=== PATIENT | female | born 2005 | race Caucasian/White ===

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

== ENCOUNTER 2024-04-05 15:09 | Emergency (ER) | payer OTHER, SELFPAY ==
--- NOTE | 2024-04-05 15:28 | ED.FEMALEGU ---
HPI - Female Genitourinary General Chief complaint: Urogenital-Female Stated complaint: sharp shooting pain from pelvis Time Seen by Provider: 04/05/24 15:58 Source: patient and RN notes reviewed Mode of arrival: ambulatory Limitations: no limitations History of Present Illness HPI Narrative: 18-year-old female presents with concern of for left lower quadrant pain that started yesterday. She reports pain worsens with activity. She reports she is having some low back pain as well. She reports history of UTIs but typically has dysuria and strong smelling urine with her UTI symptoms. She reports she has an IUD so she does not get menstrual periods, she denies concern for STDs. She denies abnormal vaginal discharge. She denies fever, chills, sweats, nausea, vomiting. She denies bowel problems MD elicited complaint: other (LLQ pain) Related Data Home Medications Medication Instructions Recorded Confirmed levonorgestrel 17.5 mcg/24 hr (up 1 device intrauterine ONCE 04/05/24 04/05/24 to 5 yrs) 19.5mg intrauterine device (Kyleena) Allergies Allergy/AdvReac Type Severity Reaction Status Date / Time No Known Allergies Allergy Verified 04/05/24 15:47 Review of Systems Review of Systems: CONSTITUTIONAL: Denies malaise, chills, sweats, or fever. CARDIOVASCULAR: Denies chest pain, palpitations, or edema. RESPIRATORY: Denies cough or dyspnea. GASTROINTESTINAL: Reports left lower quadrant abdominal pain. Denies nausea, vomiting, diarrhea GENITOURINARY: Denies dysuria, frequency, urgency, suprapubic pressure. Denies flank pain or hematuria. SKIN: Denies rash or itching. MUSCULOSKELETAL: Reports left back pain. Denies myalgia. All systems reviewed & are unremarkable except as noted in HPI and below PMFSH Past Medical History Medical History (Updated 04/05/24 @ 16:05 by Chrissy Pruett NP) Patient denies medical problems Surgical History Surgical History (Updated 08/17/22 @ 00:07 by Karen Florian MD) No pertinent past surgical history Social History Social History (Updated 08/17/22 @ 00:07 by Karen Florian MD) Smoking status: Never smoker Comments At time of signature, agree with nursing past medical, surgical, social and family history. There is no relevant family history pertinent to the presenting complaint Exam Narrative: GENERAL: Well-appearing, well-nourished, and in no acute distress. HEAD: Normocephalic. EYES: PERRLA, conjunctivae clear. NECK: Supple. No lymphadenopathy CHEST: Clear to auscultation. No respiratory distress. HEART: Regular rate and rhythm. ABDOMEN: Soft, nontender upon palpation, nondistended, normal active bowel sounds, no palpable or pulsatile masses, no guarding. Left CVA tenderness SKIN: Warm, dry, no rash. NEURO: Alert and oriented x3. PSYCH: Normal mood and affect Course Course Emergency Course: I discussed UA findings with patient, exam findings. However I did discuss with her that given her symptoms I cannot rule out any other pathology of her pain and that she could be transferred to the emergency room for further evaluation. Patient would not like to go to the emergency room at this time. She understands symptoms to look for for when to seek care in the emergency room. Anticipatory guidance given. Patient agrees to follow-up as directed and is aware of reasons to seek care at the emergency department. Portions of this record may have been created with voice recognition software Level of Care: Express Care Visit Vital Signs Vital signs: Reviewed. MDM - Female Genitourinary MDM Narrative Medical decision making narrative: Exam findings and UA show no acute concerns or changes; patient is non-toxic appearing and is in no distress. Patient is appropriate for outpatient treatment and follow-up. Differential Diagnosis Differential diagnosis: Likely urinary tract infection and cystitis Critical Care Time Critical Care Time Critical C
[2024-04-05 15:34] VITALS: BP 109/64; PULSE 84; RESP 18; TEMP 36.6; O2SAT 100
[2024-04-05 15:48] LABS: EDUAAPPEAR Cloudy; EDUABILI Negative; EDUABLOOD 2+; EDUACOLOR1 Yellow; EDUAGLUCOSE Negative; EDUAKETONE Negative; EDUALEUKO 1+; EDUANITRATE Negative; EDUAPH 5.5; EDUAPROTEIN Negative; EDUAUROBILI 0.2
== END 2024-04-05 16:13 | disposition home or self-care (01) ==
PROVIDERS: Emergency Provider Nurse Practitioner; PCP Family Medicine
DX: N39.0 Urinary tract infection, site not specified (principal)
CPT/HCPCS: 81003; 87086; 99213; G0463

== ENCOUNTER 2024-04-06 16:02 | Outpatient (CLI) | payer OTHER, SELFPAY ==
--- NOTE | ~2024-04-06 | XR_ITS ---
XR lumbar spine 2-3V 04/06/2024 16:23 Indication: Low back pain for 3 days Procedure: 4 views lumbar spine Comparison: No prior studies for comparison. Findings: Vertebral body heights are maintained. No significant disc narrowing. No fracture, subluxat ion or dislocation. Pedicles intact. No evidence for spondylolisthesis. Sacral foramen are symmetric. Impression: 1: No significant abnormality of the lumbar spine. Reviewed, dictated and finalized at location B. Impression: 1: No significant abnormality of the lumbar spine.
== END 2024-04-06 16:03 | disposition home or self-care (01) ==
LOC: CHSIMG 16:03
PROVIDERS: PCP Family Medicine; Visit Provider Family Medicine
DX: R10.9 Unspecified abdominal pain (principal); M54.50 Low back pain, unspecified
CPT/HCPCS: 72100

== ENCOUNTER 2024-04-22 13:55 | Emergency (ER) | payer OTHER, SELFPAY ==
[2024-04-22 14:07] VITALS: BP 110/69; PULSE 91; RESP 18; TEMP 36.4; O2SAT 100
[2024-04-22 14:09] VITALS: BP 110/69; PULSE 91; RESP 18; TEMP 36.4; O2SAT 100
--- NOTE | 2024-04-22 14:27 | ED.URI ---
HPI - URI/Sore Throat General Chief Complaint: Upper Respiratory Infection Stated Complaint: strep test Time Seen by Provider: 04/22/24 14:27 Source: patient Mode of arrival: ambulatory Limitations: no limitations History of Present Illness HPI Narrative: 18-year-old female presents with complaint of sore throat, fatigue, nausea and vomiting, headache for 2 days. Afebrile. Reports COVID and strep exposure. All systems reviewed and negative except as noted above. Related Data Home Medications Medication Instructions Recorded Confirmed levonorgestrel 17.5 mcg/24 hr (up 1 device intrauterine ONCE 04/05/24 04/05/24 to 5 yrs) 19.5mg intrauterine device (Kyleena) Allergies Allergy/AdvReac Type Severity Reaction Status Date / Time No Known Allergies Allergy Verified 04/22/24 14:09 Review of Systems Review of Systems: CONSTITUTIONAL: Denies fever, chills, or sweats. Reports fatigue. EYES: Denies visual changes, redness, or discharge. ENT: Denies rhinorrhea, congestion . Reports sore throat. Denies otalgia. CARDIOVASCULAR: Denies chest pain, palpitations, or edema. RESPIRATORY: Denies cough or dyspnea. GASTROINTESTINAL: Denies abdominal pain. Reports nausea, vomiting. Denies diarrhea. GENITOURINARY: Denies dysuria or hematuria. SKIN: Denies rash or itching. MUSCULOSKELETAL: Denies back pain, joint pain, or myalgia. NEUROLOGIC: Denies headache, numbness, or weakness. PSYCHIATRIC: Denies anxiety or depression. All other systems reviewed are negative, except as documented in HPI. [facility] Past Medical History Medical History (Updated 04/22/24 @ 14:38 by Bernarda Short NP) Patient denies medical problems Surgical History Surgical History (Updated 08/17/22 @ 00:07 by Karen Florian MD) No pertinent past surgical history Social History Social History (Updated 08/17/22 @ 00:07 by Karen Florian MD) Smoking status: Never smoker Comments At time of signature, agree with nursing past medical, surgical, social and family history. There is no relevant family history pertinent to the presenting complaint. Exam Narrative: GENERAL: This is a well-nourished, well-developed patient, in no apparent distress. HEAD: normocephalic, atraumatic. EYES: PERRL. Sclera clear/white. Vision is grossly intact. EARS: External ears normal, auditory canals clear and without drainage, TMs normal without perforation. Hearing grossly intact. NOSE: External nose normal with no obvious nasal discharge, nares without redness, no rhinorrhea. THROAT: Mucous membranes moist, mild erythema with clear postnasal drainage NECK: Neck supple, non-tender without lymphadenopathy, masses or thyromegaly. CARDIOVASCULAR: Regular rate and rhythm without murmurs, gallops, or rubs. RESPIRATORY: Clear to auscultation. Breath sounds equal bilaterally. No wheezes, rales, or rhonchi. SKIN: warm, Dry, intact with no suspicious lesions or rash, good texture and turgor. NEURO: awake, alert, and oriented to person, place and time. There were no obvious focal neurologic abnormalities. EXTREMITIES: No joint tenderness, effusion, or edema noted. Course Course Level of Care: Express Care Visit Vital Signs Vital signs: Vital Signs Temperature 36.4 C 04/22/24 14:07 Pulse Rate 91 04/22/24 14:07 Respiratory Rate 18 04/22/24 14:07 Blood Pressure 110/69 04/22/24 14:07 Pulse Oximetry 100 04/22/24 14:07 Oxygen Delivery Room Air 04/22/24 14:07 Temperature 36.4 C 04/22/24 14:09 Pulse Rate 91 04/22/24 14:09 Respiratory Rate 18 04/22/24 14:09 Blood Pressure 110/69 04/22/24 14:09 Pulse Oximetry 100 04/22/24 14:09 Oxygen Delivery Room Air 04/22/24 14:09 reviewed MDM - URI/Sore Throat MDM Narrative Medical decision making narrative: negative COVID, influenza and strep test. Strep culture ordered. Will wait for strep culture results prior to treating with antibiotics. Patient ag
[2024-04-22 14:29] LABS: EDSTREPNEGPOS1 Negative
[2024-04-22 14:35] LABS: EDINFLUASCREEN Negative; EDINFLUBSCREEN Negative
== END 2024-04-22 14:42 | disposition home or self-care (01) ==
PROVIDERS: Emergency Provider Nurse Practitioner Family; PCP Family Medicine
DX: J06.9 Acute upper respiratory infection, unspecified (principal); Z20.822 Contact with and (suspected) exposure to COVID-19
CPT/HCPCS: 87081; 87426; 87804; 87880; 99213; G0463

== ENCOUNTER 2024-05-04 20:46 | Emergency (ER) | payer OTHER, SELFPAY ==
[2024-05-04 20:50] VITALS: BP 125/85; PULSE 89; RESP 18; TEMP 36.6; O2SAT 99
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
== END 2024-05-04 21:10 | disposition home or self-care (01) ==
LOC: CHSED 21:07
PROVIDERS: Emergency Provider Emergency Medicine; PCP Family Medicine
DX: S80.12XA Contusion of left lower leg, initial encounter (principal); Z79.899 Other long term (current) drug therapy; V09.9XXA Pedestrian injured in unspecified transport accident, initial encounter
CPT/HCPCS: 99282

== ENCOUNTER 2024-08-21 09:49 | Emergency (ER) | payer OTHER, SELFPAY ==
[2024-08-21 09:58] VITALS: BP 107/71; PULSE 61; RESP 16; TEMP 36.4; O2SAT 100
--- NOTE | 2024-08-21 10:13 | ED.EYEPROB ---
HPI - Eye Problem General Chief complaint: Eye Problems Stated complaint: seeing blurry and spots Time Seen by Provider: 08/21/24 10:04 Source: patient Mode of arrival: ambulatory Limitations: no limitations History of Present Illness HPI Narrative: Chalino is a 19-year-old female patient presenting to the clinic today with complaints of headache with visual changes. She reports symptoms started when she woke up at 2:00 a.m. this morning. States she got up to go the bathroom and had a headache with blurry vision. She thought that she may pass out due to the blurry vision. Went and woke her mom up and took some Tylenol. Rates her headache at 6/10 currently. States that this was the worst headache she has ever had as she does not normally get headaches. Last visual exam was approximately 6 years ago. Was told that she needed glasses but she does not wear glasses. No history of migraine headaches. States during the time that the headache was severe she did feel nauseous. Still reports blurry vision with seeing spots. Denies any dizziness or URI symptoms. Visual acuity 20/30 OU Related Data Home Medications ?Medication ?Instructions ?Recorded ?Confirmed ?Last Taken ?Type levonorgestrel 17.5 mcg/24 hr (up 1 device intrauterine ONCE 04/05/24 05/04/24 Unknown History to 5 yrs) 19.5mg intrauterine device (Kyleena) valacyclovir 1 gram tablet 1,000 mg PO BID 05/04/24 05/04/24 Unknown History Allergies Allergy/AdvReac Type Severity Reaction Status Date / Time No Known Allergies Allergy Verified 08/21/24 10:02 Review of Systems Review of Systems: Pertinent positives per HPI. Patient denies any fever, chills, rash, dizziness, cough, runny nose, sore throat, shortness of breath, chest pain, palpitations, vomiting, diarrhea, constipation, abdominal pain, or any urinary issues. [facility] Past Medical History Medical History (Updated 08/21/24 @ 10:12 by Khari Malone APRN) Patient denies medical problems Surgical History Surgical History (Updated 08/17/22 @ 00:07 by Karen Florian MD) No pertinent past surgical history Social History Social History (Updated 08/17/22 @ 00:07 by Karen Florian MD) Smoking status: Never smoker Comments At the time of my signature, I reviewed and agree with the nursing past medical, surgical, social, and family history. There is no relevant family history pertinent to the patient complaint. Exam Narrative: General: Well-developed, well nourished, in no apparent distress Head: Normocephalic, atraumatic Eyes: Pupils equally round and reactive to light bilaterally, EOM intact, sclera and conjunctive clear, no discharge, lids normal Ears: TMs intact and clear, ear canals clear, no drainage, grossly hearing normal. Nose: Nares patent, no discharge, no inflammation, no sinus tenderness. Mouth: Oropharynx without lesions or masses, good dentition, MMM. Tongue midline, even rise and fall of uvula Neck: Supple, trachea midline, no enlargement of anterior or posterior cervical nodes, no thyroid masses or goiter palpable. Cardio: Regular rate and rhythm, s1 and s2 normal, no murmur appreciated. Resp: Clear to auscultation bilaterally anteriorly and posteriorly, no rhonchi, rales, wheezing or rubs Musculoskeletal: No deformity, non-tender to palpation, grossly normal range of motion, muscle strength strong and equal, peripheral pulse strong, no edema, no cyanosis, normal gait and station Neuro: Alert and oriented x4 with normal speech, no focal deficits, cranial nerves I through XII intact, muscle strength 5 out of 5, sensation intact bilaterally. Course Course Emergency Course: Portions of this record may have been created with voice recognition software. Level of Care: Express Care Visit Vital Signs Vital signs: Vital Signs Temperature 36.4 C L 08/21/24 09:58 Pulse Rate 61 08/21/24 09:58 Respiratory Rate 16 08/21/24 09:58 Blood Pressure 107/71 08/21/24 09:58 Pulse Oximetry 100 08/21/24 09:58 Oxygen Delivery Room Air 08/21/24 09:58 Temperature 36.4 C L 08/21/24 09:58 Pulse Rate 61 08/21/24 09:58 Respiratory Rate 16 08/21/24 09:58 Blood Pressure 107/71 08/21/24 09:58 Pulse Oximetry 100 08/21/24 09:58 Oxygen Delivery Room Air 08/21/24 09:58 Vital signs reviewed MDM - Eye Problem MDM Narrative Medical decision making narrative: At the time of visit patient is resting comfortably on the exam table. Patient appears to be nontoxic. Plan: Patient reports headache with visual changes. No history of migraine headache. States that it was the worst headache that she has ever had as she does not normally get headaches. Did have some associated nausea. Took Tylenol and this improved the headache however she is still having visual changes. Recommend transfer to the ER for further evaluation-head CT. Discussed case with Serena at [facility] and she accepts patient for transfer. Differential Diagnosis Differential diagnosis: Likely glaucoma and other (Migraine headache, ocular migraine, headache, retinal detachment) Discharge Plan Discharge Clinical Impression: Change in vision Headache Qualifiers: Headache type: unspecified Headache chronicity pattern: acute headache Intractability: not intractable Qualified Code(s): R51.9 - Headache, unspecified Patient Disposition: Acute Care Hospital Condition: Stable Patient Language: Mohawk Prescriptions: No Action valacyclovir 1 gram tablet 1,000 mg PO BID Kyleena 17.5 mcg/24 hr (5 yrs) 19.5 mg Intrauterine Device 1 device INTRAUTERINE ONCE Rx Instructions: as a single dose Follow-up/Referrals: UNKNOWN,DOCTOR [Primary Care Provider] - Time of Disposition: 10:12 Quality NIHSS Nursing Documentation ED NIHSS nursing documentation: reviewed/agree
== END 2024-08-21 10:15 | disposition short-term general hospital (02) ==
PROVIDERS: Emergency Provider Nurse Practitioner Family
DX: R51.9 Headache, unspecified (principal); H53.8 Other visual disturbances
CPT/HCPCS: 99212; G0463

== ENCOUNTER 2024-08-21 10:26 | Emergency (ER) | payer OTHER, SELFPAY ==
--- NOTE | ~2024-08-21 | CT_ITS ---
Non-contrast Head CT History: Headache Technique: Axial non-contrast imaging of the brain was performed. Dose reduction technique was used on this scan by utilizing automated exposure control and iterative reconstruction technique. The dose -length product (DLP) was 605.33 mGy-cm. Findings: There is no evidence of intracranial hemorrhage, mass lesion, or acute infarct. Brain par enchyma appears normal. The ventricles and subarachnoid spaces are normal in size. The calvarium ap pears normal. The visualized paranasal sinuses and mastoid air cells are clear. Impression: No significant abnormality seen. Reviewed, dictated and finalized at location . OYEE COMMUNICATIONS COORDINATOR Impression: No significant abnormality seen.
[2024-08-21 10:30] VITALS: BP 117/65; PULSE 75; RESP 16; TEMP 36.4; O2SAT 100
--- NOTE | 2024-08-21 10:35 | ED.HA ---
HPI - Headache General Chief Complaint: Headache <Liz Newell PA-C - Last Filed: 08/21/24 10:36> Stated Complaint: blurry vision, MCNULTY <Liz Newell PA-C - Last Filed: 08/21/24 10:36> Time Seen by Provider: 08/21/24 12:01 <Liz Newell PA-C - Last Filed: 08/21/24 10:36> Focused HPI: 19-year-old female with no past medical history presents to the emergency department for a headache that started at 2:00 a.m.. Patient states she her headache started with black spots in her vision in bilateral eyes and 30 minutes later began having headache on her nasal bridge in surrounding her eyes. States the headache and black spots in her vision has been persistent since. She has no history of headaches, no head injury trauma, no fever, no nuchal rigidity. She denies focal numbness or weakness. She has an IUD in place and denies possibility of . GENERAL: Well-appearing, well-nourished, and in no acute distress. HEAD: Normocephalic, atraumatic. CHEST: Clear to auscultation. ?No respiratory distress. HEART: Regular rate and rhythm.? NEURO: ?Alert and oriented x3. Cranial nerves 2-12 intact. Strength 5/5 in BUE and BLE. Sensation intact throughout. Normal [id number]. No pronator drift. Patient screened in triage and initial orders placed.? ?Additional care and disposition to be based upon?diagnostic testing and treatment. <Liz Newell PA-C - Last Filed: 08/21/24 10:36> History of Present Illness HPI Narrative: Agree with HPI as described above <Nguyễn Gregorio MD - Last Filed: 08/21/24 13:20> Related Data Home Medications: Home Medications ?Medication ?Instructions ?Recorded ?Confirmed ?Last Taken ?Type levonorgestrel 17.5 mcg/24 hr (up 1 device intrauterine ONCE 04/05/24 05/04/24 Unknown History to 5 yrs) 19.5mg intrauterine device (Kyleena) valacyclovir 1 gram tablet 1,000 mg PO BID 05/04/24 05/04/24 Unknown History <Liz Newell PA-C - Last Filed: 08/21/24 10:36> Allergies/Adverse Reactions: Allergies Allergy/AdvReac Type Severity Reaction Status Date / Time No Known Allergies Allergy Verified 08/21/24 11:28 <Liz Newell PA-C - Last Filed: 08/21/24 10:36> Review of Systems Review of Systems: as reviewed above in HPI <Nguyễn Gregorio MD - Last Filed: 08/21/24 13:20> PMFSH Past Medical History Medical History: Medical History Patient denies medical problems <Liz Newell PA-C - Last Filed: 08/21/24 10:36> Surgical History Surgical History: Surgical History No pertinent past surgical history <Liz Newell PA-C - Last Filed: 08/21/24 10:36> Social History Social History: Social History Smoking status: Never smoker <Liz Newell PA-C - Last Filed: 08/21/24 10:36> Exam Narrative: GENERAL: [Well-appearing, well-nourished, and in no acute distress.] HEAD: [Normocephalic, atraumatic.] EYES: [PERRLA and EOMI.] ENT: Nares clear, no rhinorrhea or epistaxis. Mucous membranes moist. NECK: Supple. CHEST: [Clear to auscultation. No respiratory distress.] HEART: [Regular rate and rhythm]. No murmur heard. [Normal peripheral pulses.] ABDOMEN: [Soft, nondistended], [nontender], [No rigidity or guarding] EXTREMITIES: Normal range of motion. [No edema.] SKIN: Warm, dry, no rash. NEURO: [No focal deficits]. Alert and oriented [x3.] PSYCH: [Normal mood and affect.] <Nguyễn Gregorio MD - Last Filed: 08/21/24 13:20> Course Vital Signs Vital signs: Vital Signs Temperature 36.4 C 08/21/24 10:30 Pulse Rate 75 08/21/24 10:30 Respiratory Rate 16 08/21/24 10:30 Blood Pressure 117/65 08/21/24 10:30 Pulse Oximetry 100 08/21/24 10:30 Temperature 36.4 C 08/21/24 10:30 Pulse Rate 75 08/21/24 10:30 Respiratory Rate 16 08/21/24 10:30 Blood Pressure 117/65 08/21/24 10:30 Pulse Oximetry 100 08/21/24 10:30 <Liz Newell PA-C - Last Filed: 08/21/24 10:36> Vital Signs Temperature 36.4 C 08/21/24 10:30 Pulse Rate 75 08/21/24 10:30 Respiratory Rate 16 08/21/24 10:30 Blood Pressure 117/65 08/21/24 10:30 Pulse Oximetry 100 08/21/24 10:30 Temperature 36.4 C 08/21/24 10:30 Pulse Rate 75 08/21/24 10:30 Respiratory Rate 16 08/21/24 10:30 Blood Pressure 117/65 08/21/24 10:30 Pulse Oximetry 100 08/21/24 10:30 <Nguyễn Gregorio MD - Last Filed: 08/21/24 13:20> MDM - Headache MDM Narrative Medical decision making narrative: 19-year-old female with no significant past medical history presenting from urgent care for evaluation of a headache that began at 2:30 a.m. this morning. Patient states that she got up this morning went to the bathroom and get a glass of water and then suddenly felt dizzy and felt like her vision was blurry. She later described developing a slow onset headache that was behind both of her eyes, radiating towards bilateral frontal lobes. she states she has never had a history of migraine headaches her ocular migraines. This is the worst headache she has ever had although with very gradual and slow in onset. She otherwise appears comfortable presently, was referred from urgent care after they evaluated her and felt she needed additional workup. she did receive migraine cocktail out front including Reglan, diphenhydramine, ibuprofen all p.o. patient was evaluated and had symptomatic resolution. patient states that she is supposed to be wearing glasses but does not choose to. She states that her blurry vision and headache have both significantly improved. She otherwise appears well has no focal neurological deficits. No jaw claudication, no unilateral symptoms, no red flag symptoms of her headache aside from her on having a history of migraine. We did discuss options going forward including risks and benefits of CT scan imaging with her symptomatic resolution. Ultimately other sure decision making we will obtain a CT head without contrast to assess for any kind of intracranial pathology although very unlikely at this time and she symptomatically and clinically is being treated as a migraine headache at this time. vital signs reassuring. She denies any chance of , has an IUD. no indications for blood work at this time given otherwise well appearance and symptom resolution. Will be able to be safely discharged after CT scan results. CT head shows no acute intracranial process. urine test negative. Patient was re-evaluated still had symptomatic resolution. At this time she is stable for discharge home and patient and family felt comfortable with this plan of care with outpatient follow-up. There were given return precautions including recurrence of severe headache, new or worsening vision changes, any other concerns and they should seek re-evaluation at that time. <Nguyễn Gregorio MD - Last Filed: 08/21/24 13:20> Differential Diagnosis Differential diagnosis: Likely migraine, tension headache, subarachnoid hemorrhage, headache and other <Nugyễn Gregorio MD - Last Filed: 08/21/24 13:20> Medical Records Attestation: I reviewed the patient's medical records. <Nguyễn Gregorio MD - Last Filed: 08/21/24 13:20> Lab Data Attestation: I reviewed the patient's lab results. <Nguyễn Gregorio MD - Last Filed: 08/21/24 13:20> Labs: Lab Results 08/21/24 Range/Units 12:25 POC Urine HCG, Qual Negative (Negative) <Liz Newell PA-C - Last Filed: 08/21/24 10:36> Lab Results 08/21/24 Range/Units 12:25 POC Urine HCG, Qual Negative (Negative) <Nguyễn Gregorio MD - Last Filed: 08/21/24 13:20> Imaging Data Attestation: I personally reviewed and interpreted this imaging study as follows: <Nguyễn Gregorio MD - Last Filed: 08/21/24 13:20> My impression: Impressions Head CT 08/21/24 12:59 Impression: No significant abnormality seen. <Nguyễn Gregorio MD - Last Filed: 08/21/24 13:20> Discharge Plan Discharge Clinical Impression: Migraine <Liz Newell PA-C - Last Filed: 08/21/24 10:36> Patient Disposition: Home, Self-Care <Liz Newell PA-C - Last Filed: 08/21/24 10:36> Condition: Stable <Liz Newell PA-C - Last Filed: 08/21/24 10:36> Instructions: Antibiotic Form, Migraine Headache (ED) <Liz Newell PA-C - Last Filed: 08/21/24 10:36> Additional Instructions: You can take ibuprofen and Tylenol for any continued or residual headache. Follow-up with your primary care provider regarding your migraines. Return with any new or worsening symptoms at any time. <Liz Newell PA-C - Last Filed: 08/21/24 10:36> Patient Language: Estonian <Liz Newell PA-C - Last Filed: 08/21/24 10:36> Prescriptions: No Action valacyclovir 1 gram tablet 1,000 mg PO BID Kyleena 17.5 mcg/24 hr (5 yrs) 19.5 mg Intrauterine Device 1 device INTRAUTERINE ONCE Rx Instructions: as a single dose <Liz Newell PA-C - Last Filed: 08/21/24 10:36> Follow-up/Referrals: UNKNOWN,DOCTOR [Primary Care Provider] - <Liz Newell PA-C - Last Filed: 08/21/24 10:36> Time of Disposition: 13:19 <Liz Newell PA-C - Last Filed: 08/21/24 10:36> 13:19 <Nguyễn Gregorio MD - Last Filed: 08/21/24 13:20>
[2024-08-21] MEDS: IBUPROFEN 400 MG TABLET 800 MG PO (11:31)
[2024-08-21] MEDS: diphenhydrAMINE HCl CAP 25 MG CAPSULE PO (11:32)
[2024-08-21] MEDS: METOCLOPRAMIDE HCL 10 MG TABLET PO (11:32)
[2024-08-21 12:27] LABS: BEDSIDEPREGUCG Negative (Negative)
== END 2024-08-21 13:55 | disposition home or self-care (01) ==
PROVIDERS: Emergency Provider Student in an Organized Health Care Education/Training Program
DX: G43.909 Migraine, unspecified, not intractable, without status migrainosus (principal)
CPT/HCPCS: 70450; 81025; 99284; A9270

== ENCOUNTER 2024-10-03 15:27 | Emergency (ER) | payer OTHER, SELFPAY ==
--- NOTE | 2024-10-03 15:29 | ED_ITS ---
HPI - URI/Sore Throat General Chief Complaint: Upper Respiratory Infection Stated Complaint: flu symptoms Time Seen by Provider: 10/03/24 15:29 Source: patient Mode of arrival: ambulatory Limitations: no limitations History of Present Illness HPI Narrative: Patient is a 19-year-old female who presents with 3 days of sore throat and feeling and fatigue. Patient also vomited on Saturday 4-5 times. Has been exposed to influenza. Denies any fever, chills, congestion, cough, diarrhea. Related Data Home Medications ?Medication ?Instructions ?Recorded ?Confirmed ?Last Taken ?Type levonorgestrel 17.5 mcg/24 hr (up 1 device intrauterine ONCE 04/05/24 05/04/24 Unknown History to 5 yrs) 19.5mg intrauterine device (Kyleena) Allergies Allergy/AdvReac Type Severity Reaction Status Date / Time No Known Allergies Allergy Verified 10/03/24 15:35 Review of Systems Review of Systems: All systems reviewed & are unremarkable except as noted in HPI and below Constitutional: Constitutional: Denies chills, Reports fatigue, Denies fever(s), Denies headache(s), Denies malaise and Denies weakness Eyes: Eyes: Denies blurry vision, Denies itchy eyes and Denies loss of vision ENT: Denies otalgia, Denies headache(s), Denies nasal congestion, Denies sinus pain and Reports sore throat Cardiovascular: Cardiovascular: Denies chest pain, Denies irregular heart rhythm and Denies dyspnea Respiratory: Respiratory: Denies cough and Denies dyspnea Gastrointestinal: Gastrointestinal: Denies abdominal pain, Denies diarrhea, Denies nausea and Reports vomiting Musculoskeletal: Musculoskeletal: Denies back pain, Denies myalgias and Denies arthralgias Integumentary/Breasts: Skin/Breast: Denies pruritus and Denies rash Neurologic: Denies headache(s), Denies loss of vision and Denies weakness Psychiatric: Psychiatric: Reports no additional psychiatric complaints Endocrine: Endocrine: Denies fatigue Allergic/Immunologic: Allergic/Immunologic: Denies itchy eyes PMFSH Past Medical History Medical History Patient denies medical problems Surgical History Surgical History No pertinent past surgical history Social History Social History Smoking status: Never smoker Comments At time of signature, agree with nursing past medical, surgical, social and family history. There is no relevant family history pertinent to the presenting complaint. Exam Const: General: cooperative, healthy appearing, comfortable, no acute distress and well nourished Nutritional Appearance: well nourished Orientation/consciousness: patient oriented x3 Limitations: no limitations HENMT: Head: normal to inspection, normocephalic and atraumatic Ears: hearing grossly normal bilaterally, external ears normal, TM's normal bilaterally, EAC's normal and no periauricular adenopathy Face/Nose/Sinus: Normal external nose present, Abnormal mucous membranes and turbinates present erythematous bilateral and diffuse, normal facial exam, sinuses nontender and face symmetric Face and sinus: normal facial exam, sinuses nontender and face symmetric Mouth: Yes Normal oral and palatal mucosa present, Yes lip normal, Yes tongue normal, Yes Normal salivary glands and ducts present, Yes oropharynx normal and Yes moist mucous membranes Teeth and gingiva: dentition normal Throat: posterior oropharynx normal, tonsils normal, uvula midline and postnasal drainage Eyes: General: appearance normal, both eyes and all related structures Alignment and Position: alignment normal and position normal Periorbital: periorbital findings normal Eyelids: eyelids normal Pupils: Equal, round and reactive pupils present Neck: Neck: normal visual inspection, full ROM, no lymphadenopathy and supple Chest: Chest palpation & inspection: normal inspection of the chest and normal palpation of entire chest wall Resp: Effort & Inspection: normal respiratory effort and able to speak in complete sentences Auscultation: clear to auscultation bilaterally, no crackles, no rales, no rhonchi and no wheezes Cardio: Rate: regular rate Rhythm: regular rhythm Heart sounds: S1 normal heart sound present and S2 normal heart sound present GI: Inspection: normal to inspection Skin: General skin exam: normal color and no rashes or lesions noted Neuro: General: patient oriented x3 and moves all extremities Cranial nerves: Yes Equal, round and reactive pupils present Speech: normal speech Gait exam (Neuro): Normal gait present Extrem: General: normal to inspection, full ROM and no edema Psych: Appearance: grossly normal and well kempt Mental Status: mental status grossly normal Speech and movement: Normal speech and movement present Affect: normal affect Attitude: cooperative Thought process: Normal thought process present Course Course Emergency Course: Discharge instructions reviewed with patient, as well as provided in writing per nursing staff. The instructions also include specific and strict return/GO TO THE ER as well as f/u information. All questions have been answered, and the patient deny any further questions with discharge and discharge plan. Portions of this record may have been created with voice recognition software Level of Care: Express Care Visit Vital Signs Vital signs: Vital Signs Temperature 37.1 C 10/03/24 15:32 Pulse Rate 91 10/03/24 15:32 Respiratory Rate 18 10/03/24 15:32 Blood Pressure 125/73 10/03/24 15:32 Pulse Oximetry 100 10/03/24 15:32 Oxygen Delivery Room Air 10/03/24 15:32 Temperature 37.1 C 10/03/24 15:32 Pulse Rate 91 10/03/24 15:32 Respiratory Rate 18 10/03/24 15:32 Blood Pressure 125/73 10/03/24 15:32 Pulse Oximetry 100 10/03/24 15:32 Oxygen Delivery Room Air 10/03/24 15:32 Reviewed MDM - URI/Sore Throat MDM Narrative Medical decision making narrative: Pt well hydrated appearing, in no respiratory distress, hemodynamically stable. Recommend supportive care. The patient is stable at time of discharge the clinical impression was discussed and the patient was given the opportunity to ask questions, which were addressed as completely as possible given the information available at present. Anticipatory guidance and return to care precautions were discussed and the importance of primary care follow-up was stressed and encouraged. The patient voiced understanding of the plan, indications to return, and the need for follow-up. Differential diagnosis considered: Bronchitis, Bernard virus, strep pharyngitis, allergic rhinitis, upper respiratory tract infection, sinusitis, rhinosinusitis, nasopharyngitis. viral pharyngitis, otitis media, otitis externa, otitis effusion, foreign body, cerumen impaction, viral syndrome, and influenza.? Exam findings show no acute concerns or changes; patient is non-toxic appearing and is in no distress.? Patient is appropriate for outpatient treatment and follow- up.? Medical Records Attestation: I reviewed the patient's medical records. Lab Data Attestation: I reviewed the patient's lab results. Labs: Lab Results 10/03/24 Range/Units 15:53 POC Influenza A Ag Negative (Negative) POC Influenza B Ag Negative (Negative) POC SARS CoV-2 Ag Negative (Negative) Discharge Plan Discharge Clinical Impression: Upper respiratory infection Qualifiers: URI type: acute nasopharyngitis (common cold) Qualified Code(s): J00 - Acute nasopharyngitis [common cold] Patient Disposition: Home, Self-Care Condition: Stable Instructions: Upper Respiratory Infection (ED) Additional Instructions: Your Covid and flu are both negative Your symptoms are likely due to a viral illness, which is not treated with antibiotics. Viral symptoms can be present for up to a few weeks. -For pain/fever, you may take: Tylenol 650-1000mg by mouth every 4-6 hours. Do not exceed 4000mg in 24 hours. Advil (Ibuprofen) 600 mg by mouth every 6 hours. Do not exceed 2400mg in 24 hours. 8 AM: Tylenol 11 AM: Ibuprofen 2 PM: Tylenol 5 PM: Ibuprofen 8 PM: Tylenol 11 PM: Ibuprofen 2 AM: Tylenol 5 AM: Ibuprofen -Antihistamine medication such as Benadryl/Zyrtec at night and Claritin/Shakira during the day can help improve symptoms. -Use Flonase twice a day for 5 days then daily to help reduce the inflammation and dry up your sinuses. -You can also use Sudafed behind the pharmacy counter(12 or 24 hour). Be sure to drink plenty of water with these medications at least 8 ounces with every do se and it is important to drink 8 to 10 glasses of water per day. Water is a natural decongestant -Eat and drink things that are easy to swallow, like tea or soup, or popsicles. -Oral rinses such as: Salt water gargles and/or may use topical anesthetic (eg. Chloraseptic spray) or lozenges to relieve dryness or throat pain). -Frequent hand washing or hand visual communications instructor is one of the best ways to prevent spread of infection. -Using a vaporizer or humidifier at night will also help thin secretions and help with coughing up phlegm. Call your Primary Care Doctor and make a follow-up appointment in 3 days. If your cough worsens, you develop a fever greater than 103, you develop shaking chills, a fast heartbeat, trouble breathing and/or feel you are are breathing much faster than usual, call your Primary Care Doctor or go to the ER. Patient Language: Citizen Of [place] Prescriptions: New fluticasone propionate [Flonase Allergy Relief] 50 mcg/actuation spray,suspension 1 spray intranasal DAILY Qty: 16 0RF Rx Instructions: administer into each nostril No Action Kyleena 17.5 mcg/24 hr (5 yrs) 19.5 mg Intrauterine Device 1 device INTRAUTERINE ONCE Rx Instructions: as a single dose Follow-up/Referrals: aMx Vogt MD [Primary Care Provider] - 3 Days Stand Alone Forms: Work/School Release IP Time of Disposition: 16:03
--- OUTSIDE RECORDS SUMMARY | 2024-10-03 15:29 | XMS_ITS | Referral Summary ---
Author Organization [facility] Address [address] [place] [address] Care Team Providers Care Maintenance Machinist Name Role Phone Max Vogt MD Primary Care Provider [phone] Source Comments [facility],non-owned Affiliates and Associated Physician Practices is amultiple site organization consisting of ambulatory clinics and hospital sitesin [place], [place]. This disclosure is being madepursuant to the Care Everywhere program and may not contain all information available regarding this patient. Last updated 18.[facility] Allergies No known active allergies Medications * Be aware that medications may not be up to date on this document. Alwaysverify current medications with the patient. Medication Sig Dispensed Refills Start Date End Date Status cetirizine (ZYRTEC) 10 MG tablet TK 1 T PO D. 1 05/28/2019 Active Active Problems Problem Noted Date Diagnosed Date Dizziness and giddiness 03/04/2019 Abdominal pain 03/04/2019 Social History Tobacco Use Types Packs/Day Years Used Date Smoking Tobacco: Never Smokeless Tobacco: Never Sex and Gender Information Value Date Recorded Sex Assigned at Not on file Gender Identity Not on file Sexual Orientation Not on file Last Filed Vital Signs Vital Sign Reading Time Taken Comments Blood Pressure 129/73 07/02/2023 11:12 PM SCROLL SAW OPERATOR Pulse 88 07/02/2023 11:12 PM SCROLL SAW OPERATOR Temperature 36.4 C (97.5 F) 07/02/2023 11:12 PM SCROLL SAW OPERATOR Respiratory Rate 20 07/02/2023 11:12 PM SCROLL SAW OPERATOR Oxygen Saturation 100% 07/02/2023 11:12 PM SCROLL SAW OPERATOR Inhaled Oxygen Concentration - - Weight 70.3 kg (155 lb) 07/02/2023 11:12 PM SCROLL SAW OPERATOR Height 170.2 cm (5' 7 ) 07/02/2023 11:12 PM SCROLL SAW OPERATOR Body Mass Index 24.28 07/02/2023 11:12 PM SCROLL SAW OPERATOR Plan of Treatment Not on file Procedures Procedure Name Priority Date/Time Associated Diagnosis Comments CHLAMYDIA + GC AMPLIFIED PROBE STAT 07/02/2023 11:55 PM SCROLL SAW OPERATOR from Last 3 Months or Most Recently Relevant to Health Maintenance Results * (ABNORMAL) CHLAMYDIA + GC AMPLIFIED PROBE (07/02/2023 11:55 PM SCROLL SAW OPERATOR) Chlamydia Amplified Probe Positive(A) Negative 07/03/2023 8:06 PM SCROLL SAW OPERATOR [facility] GC Amplified Probe Negative Negative 07/03/2023 8:06 PM SCROLL SAW OPERATOR [facility] Microbiology URINE / Unknown Collection / Unknown 07/02/2023 11:55 PM SCROLL SAW OPERATOR 07/03/2023 12:02 AM SCROLL SAW OPERATOR Narrative [facility] - 07/03/2023 8:06 PM SCROLL SAW OPERATOR Repeat testing is recommended 3 months post treatment for patients who test positive for Chlamydia trachomatis/Neisseria gonorrhoeae. Results based on detection/no detection of ribosomal RNA by amplified method. Keith Neumann PA-C LAB - MICR OBIOLOGY ORDERABLES [facility] [address] [place] [address], [facility] [phone] from Last 3 Months or Most Recently Relevant to Health Maintenance Care Teams Maintenance Machinist Relationship Specialty Start Date End Date Max Vogt MD [address] [place] [address] PCP - General Family Medicine 12/30/18
--- OUTSIDE RECORDS SUMMARY | 2024-10-03 15:29 | XMS_ITS ---
Author Organization [facility] Address [address] [place] [address] Care Team Providers Care Primer Inserting Machine Adjuster Name Role Phone Christine Rodriguez Unavailable [phone] REASON FOR VISIT Check in and consents Encounters Encounter Location Date Provider Diagnosis [address] [place] [address] 06/13/2023 Christine Rodriguez Plan Of Treatment No Information Progress Notes * Jenn PORTERDOB: 4 (17 yo F)Acc No.[id number]:06/13/2023 Patient: Dejah SUZAN Jenn :2005 A ge:17 Y S ex:Female Address:[address] [place] [id number] * true * Date: Generated for Keni cesar/Ander/eTransmitting on: 0 10/03/2024 03:29 PM FOOD AND BEVERAGE COORDINATOR
--- OUTSIDE RECORDS SUMMARY | 2024-10-03 15:29 | XMS_ITS | Patient Health Record ---
Author Organization [facility] [employer] [facility] Address [address] [place] [address] Care Team Providers Care Jewel Cupping Machine Operator Name Role Phone Lizet Lakhani Primary Care Provider ALLERGIES Allergen (clinical drug ingredient) Drug/Non Drug Allergy documented on EMR Reaction Allergy Type Onset Date Status Substance with sulfonamide structure and antibacterial mechanism of action (substance) Sulfa Antibiotics Unknown Drug Allergy Active RESULTS Component Value Reference Range Notes Influenza Rapid Reviewed date:10/31/2023 01:33:11 PM Interpretation:Normal Performing Lab: Notes/Report: Normal RAPID INFLUENZA POSITIVE Flu A NEGATIVE Flu B NEGATIVE Lot # Expiration Date Staff Readiness Officer AMARILIS MALDONADO COVID QuickVue Professional Use SARS Antigen Reviewed date:10/31/2023 01:32:36 PM Interpretation:Normal Performing Lab: Notes/Report: Normal Quickvue NEGATIVE Influenza Rapid Reviewed date:12/23/2023 12:31:43 PM Interpretation:Normal Performing Lab: Notes/Report: Normal RAPID INFLUENZA POSITIVE Flu A NEGATIVE Flu B NEGATIVE Lot # Expiration Date Staff Readiness Officer AMARILIS MALDONADO COVID QuickVue Professional Use SARS Antigen Reviewed date:12/23/2023 12:26:46 PM Interpretation:Normal Performing Lab: Notes/Report: Normal Quickvue NEGATIVE REASON FOR REFERRAL No Information MEDICATIONS Medication SIG (Take, Route, Frequency, Duration) Notes Start Date End Date Status valACYclovir HCl 1 GM 1 tablet Orally TW ICE DAILY X2 DAYS FOR COLD SORE 10/31/2023 Not-Taking Ondansetron HCl 4 MG 1-2 tablet Orally t wice daily as needed for 2 days 12/23/2023 Activ e SOCIAL HISTORY Tobacco Use: Social History Observation Description Date Details (start date - stop date) Current Smoker NA - NA Sex Assigned At : Social History Observation Description Sex Assigned At Unknown Tobacco Use/Smoking Question Answer Notes Are you a current user How often do you smoke cigarettes? every day Additional Findings: Tobacco Non-User Vape user Alcohol Questionnaire Question Answer Notes Did you have a drink containing alcohol in the p ast year? No Points 0 Interpretation Negative PROBLEMS Problem Type ICD Code Onset Dates Problem Status W/U Status Risk SNOMED Code Notes Problem Constipation, unspecified constipation type (K59.00) Active confirmed 41026715 Problem Acute pain of left foot (M79.672) Active confirmed Pain in limb (38091107) VITAL SIGNS Heart Rate 78 /min 12/23/2023 Temperature 98.0 degrees Fahrenheit 12/23/2023 Respiratory Rate 14 /min 12/23/2023 Oximetry 98 % 12/23/2023 Blood pressure diastolic 78 mm Hg 12/23/2023 Weight-kg 80.83 kg 12/23/2023 Height 67.5 in 12/23/2023 BMI Percentile 88.92 % 12/23/2023 Blood pressure systolic 116 mm Hg 12/23/2023 Weight 178.2 lbs 12/23/2023 BMI 27.5 12/23/2023 Encounters Encounter Location Date Provider Diagnosis [facility] [address] [place] [address] 10/31/2023 Lizet Voyda URI, acute J06.9 ; Occupational exposure to COVID-19 virus Z20.822 ; Cold sore B00.1 and Ceruminosis, bilateral H61.23 [facility] [address] [place] [address] 12/23/2023 Lizet Voyda URI, acute J06.9 and Nausea and vomiting in adult R11.2 ASSESSMENTS Encounter Date Diagnosis Assessment Notes Treatment Notes Treatment Clinical Notes Section Notes 10/31/2023 URI, acute (ICD-10 - J06.9) Rapid testing results: negative COVID and flu. Discusssed OTC medications/anal gesics as appropriate for pain and ssx mgnt. Advised hydration, rest, hand hygiene, sanitize surfaces. Notify us if condition worsens. RTC 2-3 days if no improvement with antibiotics. Work note provided. 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 12/23/2023 URI, acute (ICD-10 - J06.9) Rapid test results: COVID and flu negative. 12/23/2023 Nausea and vomiting in adult (ICD-10 - R11.2) Zofran Rx'd and dispensed - educated pt on medication's indication, PRN use, and potential SE constipation. Encouraged her to hydrate well, try eating very small simple bland snacks vs large flavorful meals. Work note provided. She will RTC if ssx fail to resolve. 10/31/2023 Cold sore (ICD-10 - B00.1) Pt taking valacyclovir from prior provider for cold sore outbreak. She reportedly has outbreak when ill. Condition is responding to antiviral well. She will notify us for further concern. 10/31/2023 Ceruminosis, bilateral (ICD-10 - H61.23) After verbal or written consent was obtained. A 50/50 solution of warm water and hydrogen peroxide was used to flush specified bilatera ears. A large amount of cerumen was removed. Patient tolerated procedure well and noted improvement in hearing and sensation of clogged ear. Prevention of Cerumen Impaction discussed. Educated to avoid inserting foreign objects into ears including Qtips. 10/31/2023 Other PLAN OF TREATMENT No Information Insurance Providers Payer Name Payer Address Payer Phone Subscriber Number Group Number Insured Name Patient Relationship to Insured Coverage Start Date Coverage End Date [employer] [facility] [address] [address] [place] [address] [id number] Siva Porter Child - Insured has Financial Responsibility 3 MEDICAL (GENERAL) HISTORY Surgical History Surgery Date(Month/Year) wisdom teeth 05/2021
--- OUTSIDE RECORDS SUMMARY | 2024-10-03 15:29 | XMS_ITS | Patient Health Record ---
Author Organization [facility] Address [address] [place] [address] Support Name Relationship Address Phone Jenn Porter Guarantor Unknown [phone] Allergies No Known Allergies Reason For Referral No Information Medications Medication SIG (Take, Route, Fr equency, Duration) Notes Start Date End Date Status ARIPiprazole 2 MG TAKE 1 TABLET BY AZUCENA TH EVERY DAY for 30 Active hydrOXYzine HCl 10 MG 1 tablet as needed Orally twice a day as needed for 30 days 06/13/2023 Active Social History Tobacco Use: Social History Observation Description Date Details (start date - stop date) Unknown Dont use, Tobacco Use/Smoking Question Answer Notes Are you a Uses tobacco in other forms Additional Findings: Tobacco User e-Cigarette Problems Problem Type SNOMED Code ICD Code Onset Dates Problem Status W/U Status Risk Notes Problem Mood disorder (68293061) Mood disorder (F39) Active confirmed Problem Anxiety (35302589) Anxiety (F41.9) Active confirmed Plan Of Treatment No Information
--- OUTSIDE RECORDS SUMMARY | 2024-10-03 15:29 | XMS_ITS ---
Author Organization [facility] Address [address] [place] [address] Care Team Providers Care Imaging Engineer Name Role Phone Lizet Lakhani Primary Care Provider REASON FOR VISIT PRTL: TB Test Encounters Encounter Location Date Provider Diagnosis [facility] [address] [place] [phone] 05/07/2023 Lizet Lakhani PLAN OF TREATMENT No Information Progress Notes * HERNANDESJenn GUERRERODOB: 4 (17 yo F)Acc No.[id number]:05/07/2023 Patient: Jenn Hernandes :2005 Age:17 Y Sex:Female Phone: Address:[address] [place] [id number] Subjective: * Chief Complaints: * PRTL: TB Test * Medical History: * Surgical History: * Hospitalization/Major Diagno stic Procedure: * Medications: Objective: Assessment: Plan: * Treatment: * Procedure Codes: * true * Date:
--- OUTSIDE RECORDS SUMMARY | 2024-10-03 15:29 | XMS_ITS | Clinical Summary ---
Author Organization [facility] Address [address] [place] [address] Care Team Providers Care Medical Terminologist Name Role Phone Max Vogt MD Primary Care Provider [phone] Source Comments [facility],non-owned Affiliates and Associated Physician Practices is amultiple site organization consisting of ambulatory clinics and hospital sitesin [place], [place], [place] and [place]. This disclosure is being madepursuant to the Care Everywhere program and may not contain all information available regarding this patient. Last updated 18.[facility] Allergies No known active allergies Medications * [...] Comments Blood Pressure 129/73 07/02/2023 11:12 PM GEL COAT SPRAYER Pulse 88 07/02/2023 11:12 PM GEL COAT SPRAYER Temperature 36.4 C (97.5 F) 07/02/2023 11:12 PM GEL COAT SPRAYER Respiratory Rate 20 07/02/2023 11:12 PM GEL COAT SPRAYER Oxygen Saturation 100% 07/02/2023 11:12 PM GEL COAT SPRAYER Inhaled Oxygen Concentration - - Weight 70.3 kg (155 lb) 07/02/2023 11:12 PM GEL COAT SPRAYER Height 170.2 cm (5' 7 ) 07/02/2023 11:12 PM GEL COAT SPRAYER Body Mass Index 24.28 07/02/2023 11:12 PM GEL COAT SPRAYER Plan of Treatment Health Maintenance Due Date Last Done Comments HIV SCREENING 2019 HPV VACCINE (1 - 3-dose series) 2019 MENINGOCOCCAL (Group B) VACCINE (1 of 2 - Standard) 2020 HEPATITIS C SCREENING 07/05/2022 DTAP/TDAP/TD VACCINES (1 - Tdap) 2023 HEPATITIS B VACCINE (1 of 3 - 19+ 3-dose series) 2023 COVID-19 VACCINE (3 - 2023-2 5 season) 2024 11/15/2021, 10/24/2021 INFLUENZA VACCINE (#1) 2024 9, 07/01/2009 CHLAMYDIA/GONORRHEA SCREENING 07/02/2024 07/02/2023 DEPRESSION SCREENING 08/19/2024 ZOSTER VACCINE (1 of 2) 2054 HIB VACCINE Aged Out No longer eligi ble based on patient's age to complete this topic MENINGOCOCCAL VACCINE Aged Out No emilia robert eligible based on patient's age to complete this topic PNEUMOCOCCAL VACCINE Aged Out No long er eligible based on patient's age to complete this topic Procedures Procedure Name Priority Date/Time Associated Diagnosis Comments CHLAMYDIA + GC AMPLIFIED PROBE STAT 07/02/2023 11:55 PM GEL COAT SPRAYER from Last 3 Months or Most Recently Relevant to Health Maintenance Results * (ABNORMAL) CHLAMYDIA + GC AMPLIFIED PROBE (07/02/2023 11:55 PM GEL COAT SPRAYER) Chlamydia Amplified Probe Positive(A) Negative 07/03/2023 8:06 PM GEL COAT SPRAYER [facility] GC Amplified Probe Negative Negative 07/03/2023 8:06 PM GEL COAT SPRAYER [facility] Microbiology URINE / Unknown Collection / Unknown 07/02/2023 11:55 PM GEL COAT SPRAYER 07/03/2023 12:02 AM GEL COAT SPRAYER Narrative [facility] - 07/03/2023 8:06 PM GEL COAT SPRAYER Repeat testing is recommended 3 months post treatment for patients who test positive for Chlamydia trachomatis/Neisseria gonorrhoeae. Results based on detection/no detection of ribosomal RNA by amplified method. Keith Neumann PA-C LAB - MICR OBIOLOGY ORDERABLES [facility] [address] [place] [address], [facility] [phone] from Last 3 Months or Most Recently Relevant to Health Maintenance Care Teams Medical Terminologist Relationship Specialty Start Date End Date Max Vogt MD [address] [place] [address] PCP - General Family Medicine 12/30/18
--- OUTSIDE RECORDS SUMMARY | 2024-10-03 15:29 | XMS_ITS | Clinical Summary ---
Author Organization [facility] Address [address] [place] [id number] Care Team Providers Care Outbound Sales Agent Name Role Phone Lizet Lakhani [facility] Primary Care Provider Allergies No known active allergies Medications No known medications Social History Tobacco Use Types Packs/Day Years Used Date Smoking Tobacco: Never Smokeless Tobacco: Never Tobacco Cessation:Counseling Given: Not Answered Alcohol Use Standard Drinks/Week Comments Never 0 (1 standard drink = 0.6 oz pur e alcohol) AUDIT-C Answer Date Recorded Frequency of Alcohol Consumption Never 10/01/2019 Average Number of Drinks Not on file 020 Frequency of Binge Drinking Not on file 09/19 Comments No Sex and Gender Information Value Date Recorded Sex Assigned at Not on file Legal Sex Female 8:03 AM CDT Gender Identity Not on file Sexual Orientation Not on file Last Filed Vital Signs Vital Sign Reading Time Taken Comments Blood Pressure 131/85 10/26/2023 7:55 PM MONOTYPE SETTER Pulse 99 10/26/2023 7:55 PM MONOTYPE SETTER Temperature 36.7 C (98 F) 10/26/2023 7:55 PM MONOTYPE SETTER Respiratory Rate 18 10/26/2023 7:55 PM MONOTYPE SETTER Oxygen Saturation 98% 10/26/2023 7:55 PM MONOTYPE SETTER Inhaled Oxygen Concentration - - Weight 70.3 kg (155 lb) 10/26/2023 7:55 PM MONOTYPE SETTER Height 170.2 cm (5' 7 ) 10/26/2023 7:55 PM MONOTYPE SETTER Body Mass Index 24.28 10/26/2023 7:55 PM MONOTYPE SETTER Plan of Treatment Health Maintenance Due Date Last Done Comments Annual Physical 2007 HPV Vaccines (2 - 2-dose series) 09/27/2019 03/27/2019 Meningococcal B Vaccine (1 of 2 - Standard) 2020 Hepatitis C 2022 COVID-19 Vaccine (3 - season) 2024 11/15/2021, 10/24/2021 Influenza Adult (#1) 2024 07/01/2009, 07/01/20 09 DTaP, Tdap and Td Vaccines (7 - Td or Tdap) 03/20/2026 03/20/2016, 09/03/2008, 08/28/2007, Additional history exists Hepatitis B Vaccines Completed 02/06/2005, 02/06/2005, 2004, Additional history exists Pneumococcal Vaccine: Pediatrics (0 to 5 Years) and At-Risk Patients (6 to 64 Years) Aged Out 09/13/2005, 02/06/2005, 2004, Additional history exists No longer eligible based on patient's age to complete this topic Meningococcal Vaccine Aged Out 03/20/2016 No emilia robert eligible based on patient's age to complete this topic RSV Immunizations Under 20 Months Aged Out No longer eligible based on patient's age to complete this topic Insurance [facility] Care Teams Outbound Sales Agent Relationship Specialty Start Date End Date Lizet Lakhani FNP [address] [place] [id number] PCP - General NURSE PRACTITIONER 10/18/22
--- OUTSIDE RECORDS SUMMARY | 2024-10-03 15:30 | XMS_ITS ---
Author Organization [facility] Address [address] [place] [address] Care Team Providers Care Rn Access Name Role Phone Swathi Eduardo [phone] REASON FOR VISIT NEW EVAL--zoom Encounters Encounter Location Date Provider Diagnosis [facility] [address] [address] 06/04/2023 Swathi Eduardo Plan Of Treatment No Information Progress Notes * Jenn HERNANDESDOB: [birth year] (19 yo F)Acc No.[id number]:06/04/2023 UNLOCKED PROGRESS NOTE Patient: Jenn MOSES Provider: LIZBETH Evans :2005 A ge:17 Y S ex:Female Date:06/04/2023 Address:[address] [place], [place] [id number] Subjective: * Chief Complaints: * 1 . NEW EVAL--zoom. * Medical History: Objective: * Vitals: Assessment: Plan: * Treatment: * Recommended Wellness and Pre vention Guidelines: * S tatus A lert L ast Done N ext Due A ction Taken N ONCOMPLIANT A lcohol use screening - 1 - N ONCOMPLIANT A llergy List Verification - 1 - N ONCOMPLIANT B sridevi Mass Index - 1 - N ONCOMPLIANT C ervical cancer screening - 1 - N ONCOMPLIANT D epression screening - 1 - N ONCOMPLIANT H IV screening - 1 - N ONCOMPLIANT S moking status - 1 - * * Electronic signature of Swathi Eduardo , [id number] on 10/03/2024 at 03:29 PM SPRAY MACHINE TENDER Sign off status: Pending * Provider: Shauna Eduardo, ANP-BC Date: 1 Generated for Ellie guerrero/Ander/Saimasmitting on: 0 10/03/2024 03:29 PM SPRAY MACHINE TENDER
--- OUTSIDE RECORDS SUMMARY | 2024-10-03 15:30 | XMS_ITS | Patient Health Summary ---
Author Organization [facility] [facility] Address [address] [place] [address] Care Team Providers Care Lead Recoverer Name Role Phone Max Vogt MD Primary Care Provider [phone] Note from [facility],non-owned Affiliates and Associated Physician Practices is amultiple site organization consisting of ambulatory clinics and hospital sitesin [place], [place], [place] and [place]. This disclosure is being madepursuant to the Care Everywhere program and may not contain all information available regarding this patient. Last updated 18.[facility] [employer] [facility] Allergies No known active allergies Medications * Be aware that medications may not be up to date on this document. Alwaysverify current medications with the patient. * cetirizine (ZYRTEC) 10 MG tablet(Started 05/28/2019) TK 1 T PO D. 1 refill left Active Problems Problem Noted Date Diagnosed Date [...] Comments Blood Pressure 129/73 07/02/2023 11:12 PM TRANSMISSION SUPERINTENDENT Pulse 88 07/02/2023 11:12 PM TRANSMISSION SUPERINTENDENT Temperature 36.4 C (97.5 F) 07/02/2023 11:12 PM TRANSMISSION SUPERINTENDENT Respiratory Rate 20 07/02/2023 11:12 PM TRANSMISSION SUPERINTENDENT Oxygen Saturation 100% 07/02/2023 11:12 PM TRANSMISSION SUPERINTENDENT Inhaled Oxygen Concentration - - Weight 70.3 kg (155 lb) 07/02/2023 11:12 PM TRANSMISSION SUPERINTENDENT Height 170.2 cm (5' 7 ) 07/02/2023 11:12 PM TRANSMISSION SUPERINTENDENT Body Mass Index 24.28 07/02/2023 11:12 PM TRANSMISSION SUPERINTENDENT Procedures * URINALYSIS REFLEX TO MICROSCOPIC NO CULTURE(Performed 07/02/2023) * TRICHOMONAS VAGINALIS AMPLIFIED PROBE(Performed 07/02/2023) * CHLAMYDIA + GC AMPLIFIED PROBE(Performed 07/02/2023) * DIFFERENTIAL MANUAL(Performed 07/02/2023) * HCG BETA BLOOD QUANTITATIVE(Performed 07/02/2023) * LIPASE BLOOD(Performed 07/02/2023) * COMPREHENSIVE METABOLIC PANEL(Performed 07/02/2023) * CBC W AUTO DIFFERENTIAL(Performed 07/02/2023) * CARDIAC EKG ORDER(Performed 06/15/2019) * EKG 15-LEAD(Performed 06/03/2019) Performed for Dizziness * BASIC METABOLIC PANEL (CALCIUM TOTAL)(Performed 06/03/2019) Results * TRICHOMONAS VAGINALIS AMPLIFIED PROBE (07/02/2023 11:55 PM TRANSMISSION SUPERINTENDENT) Trichomonas vaginalis Amplified Probe Negative Negative 07/03/2023 8:07 PM TRANSMISSION SUPERINTENDENT [facility]CROBI[facility] Microbiology URINE / Unknown Collection / Unknown 07/02/2023 11:55 PM TRANSMISSION SUPERINTENDENT 07/03/2023 12:02 AM TRANSMISSION SUPERINTENDENT Narrative [facility] - 07/03/2023 8:07 PM TRANSMISSION SUPERINTENDENT This test was developed and its performance characteristics determined by the [facility], [facility]. Urine specimens tested by the [facility] have not been cleared or approved by the U.S. Food and Drug Administration (FDA). The laboratory is regulated under the Clinical Laboratory Improvement Amendments (CLIA) as qualified to perform high-complexity testing. This test is used for clinical purposes. It should not be regarded as investigational or for research. Results based on detection/no detection of ribosomal RNA by amplified method. Keith Neumann PA-C LAB - MICR OBIOLOGY ORDERABLES [facility] [address] [place] [address], [facility] [phone] * (ABNORMAL) CHLAMYDIA + GC AMPLIFIED PROBE (07/02/2023 11:55 PM TRANSMISSION SUPERINTENDENT) Chlamydia Amplified Probe Positive(A) Negative 07/03/2023 8:06 PM TRANSMISSION SUPERINTENDENT [facility]CRO[facility] GC Amplified Probe Negative Negative 07/03/2023 8:06 PM [facility] MICROBI[facility] Microbiology URINE / Unknown Collection / Unknown 07/02/2023 11:55 PM TRANSMISSION SUPERINTENDENT 07/03/2023 12:02 AM TRANSMISSION SUPERINTENDENT Narrative [facility] - 07/03/2023 8:06 PM TRANSMISSION SUPERINTENDENT Repeat testing is recommended 3 months post treatment for patients who test positive for Chlamydia trachomatis/Neisseria gonorrhoeae. Results based on detection/no detection of ribosomal RNA by amplified method. Keith Neumann PA-C LAB - MICR OBIOLOGY ORDERABLES [facility] [address] [place], [place] [address], [facility] [phone] * (ABNORMAL) URINALYSIS REFLEX TO MICROSCOPIC NO CULTURE (07/02/2023 11:55 PM TRANSMISSION SUPERINTENDENT) Color UA Yellow Straw, Yellow 07/03/2023 12:36 AM [facility] Clarity UA Cloudy(A) Clear 07/03/2023 12:36 AM [facility] Specific [place] UA 1.023 1.005 - 1.030 07/03/2023 12:36 AM [facility] pH UA 7.0 5.0 - 8.0 pH 07/03/2023 12:36 AM [facility] Protein UA Negative Negative 07/03/2023 12:36 AM [facility] Glucose UA Negative Negative 07/03/2023 12:36 AM [facility] Ketone UA Negative Negative 07/03/2023 12:36 AM [facility] Bilirubin UA Negative Negative 07/03/2023 12:36 AM [facility] Blood UA Negative Negative 07/03/2023 12:36 AM [facility] Nitrite UA Negative Negative 07/03/2023 12:36 AM [facility] Leukocyte Esterase Trace(A) Negative 07/03/2023 12:36 AM [facility] Urobilinogen UA 4.0(A) Negative mg/dL 07/03/2023 12:36 AM [facility] RBC UA 3-5 None Seen, 0-2, 3-5 /HPF 07/03/2023 12:36 AM [facility] WBC UA 11-20(A) None Seen, 0-5 /HPF 07/03/2023 12:36 AM [facility] Bacteria UA Trace(A) None /HPF 07/03/2023 12:36 AM [facility] Squamous Epithelial Cells UA 3-5 None Seen, 0-2, 3-5 /HPF 07/03/2023 12:36 AM [facility] Mucus UA 1+ /LPF 07/03/2023 12:36 AM [facility] Urine URINE SPECIMEN OBTAINED BY CLEAN CATCH PROCEDURE / Unknown Collection / Unknown 07/02/2023 11:55 PM TRANSMISSION SUPERINTENDENT 07/03/2023 12:02 AM [facility] - 07/03/2023 12:36 AM TRANSMISSION SUPERINTENDENT Keith Neumann PA-C LAB - URIN ALYSIS ORDERABLES [facility] [address] [place] [phone], [facility] [phone] * (ABNORMAL) DIFFERENTIAL MANUAL (07/02/2023 11:49 PM TRANSMISSION SUPERINTENDENT) WBC (corrected for NRBC) 12.8 10 3/uL 07/03/2023 1:06 AM [facility] Total Cell Count 100 07/03/2023 1:06 AM [facility] Neutrophils Absolute Manual 8.96(H) 1.40 - 8.60 10 3/uL 07/03/2023 1:06 AM [facility] Comment:(BANDS+SEGS) x WBC = NEUT # (ANC) Lymphocyte Absolute Manual 2.69 0.60 - 5.90 10 3/uL 07/03/2023 1:06 AM [facility] Monocytes Absolute Manual 1.02 0.18 - 1.43 10 3/uL 07/03/2023 1:06 AM [facility] Eosinophils Absolute Manual 0.13 0.00 - 0.88 10 3/uL 07/03/2023 1:06 AM [facility] Neutrophil % Manual 70 31 - 78 % 07/03/2023 1:06 AM [facility] Lymphocyte % Manual 21 13 - 54 % 07/03/2023 1:06 AM [facility] Monocytes % Manual 8 4 - 13 % 07/03/2023 1:06 AM [facility] Eosinophils % Manual 1 0 - 8 % 07/03/2023 1:06 AM [facility] Platelet Estimate Adequate Adequate 07/03/2023 1:06 AM [facility] RBC Morphology Normal 07/03/2023 1:06 AM [facility] Blood BLOOD SPECIMEN / Unknown Venipuncture / Unknown 07/02/2023 11:49 PM TRANSMISSION SUPERINTENDENT 07/03/2023 12:00 AM TRANSMISSION SUPERINTENDENT Keith Neumann PA-C LAB - DELORES TOLOGY ORDERABLES Performing Organization Address City/State/[facility] [[email or web address]] Co de Phone Number [facility] [address] [place] [phone] [phone] * (ABNORMAL) CBC W AUTO DIFFERENTIAL (07/02/2023 11:49 PM TRANSMISSION SUPERINTENDENT) WBC 12.8(H) 4.5 - 11.0 10 3/uL 07/03/2023 12:13 AM [facility] RBC 4.79 4.10 - 5.10 10 6/uL 07/03/2023 12:13 AM [facility] Hemoglobin 14.5 12.0 - 15.6 g/dL 07/03/2023 12:13 AM [facility] Hematocrit 43.6 36.0 - 47.0 % 07/03/2023 12:13 AM [facility] MCV 91.0 78.0 - 98.0 fL 07/03/2023 12:13 AM [facility] MCH 30.3 25.0 - 35.0 pg 07/03/2023 12:13 AM [facility] MCHC 33.3 31.0 - 37.0 g/dL 07/03/2023 12:13 AM [facility] RDW-SD 40.7 36.0 - 50.0 fL 07/03/2023 12:13 AM [facility] RDW-CV 12.3 11.5 - 14.0 % 07/03/2023 12:13 AM [facility] Platelet Count 334 100 - 400 10 3/uL 07/03/2023 12:13 AM [facility] MPV 9.0 6.0 - 9.5 fL 07/03/2023 12:13 AM [facility] nRBC Absolute 0.00 0 10 3/uL 07/03/2023 12:13 AM [facility] nRBC Auto 0.0 0 /100 WBC 07/03/2023 12:13 AM [facility] Blood BLOOD SPECIMEN / Unknown Venipuncture / Unknown 07/02/2023 11:49 PM TRANSMISSION SUPERINTENDENT 07/03/2023 12:00 AM [facility] Keith Neumann PA-C LAB - DELORES TOLOGY ORDERABLES [facility] [address] [place] [phone], [facility] [phone] * (ABNORMAL) COMPREHENSIVE METABOLIC PANEL (07/02/2023 11:49 PM TRANSMISSION SUPERINTENDENT) BUN 8 7 - 26 mg/dL 07/03/2023 12:39 AM [facility] Creatinine 0.66 0.56 - 0.96 mg/dL 07/03/2023 12:39 AM [facility] Sodium 137 136 - 145 mmol/L 07/03/2023 12:39 AM [facility] Potassium 3.9 3.5 - 4.5 mmol/L 07/03/2023 12:39 AM [facility] Chloride 104 98 - 107 mmol/L 07/03/2023 12:39 AM [facility] CO2 23 22 - 29 mmol/L 07/03/2023 12:39 AM [facility] Glucose 92 70 - 115 mg/dL 07/03/2023 12:39 AM [facility] Calcium 9.3 8.4 - 10.2 mg/dL 07/03/2023 12:39 AM [facility] Protein Total 8.1 6.0 - 8.3 g/dL 07/03/2023 12:39 AM [facility] Albumin 4.0 3.4 - 5.0 g/dL 07/03/2023 12:39 AM [facility] Bilirubin Total 0.3 0.2 - 1.2 mg/dL 07/03/2023 12:39 AM [facility] Alkaline Phosphatase 92 40 - 150 U/L 07/03/2023 12:39 AM [facility] ALT 8 5 - 55 U/L 07/03/2023 12:39 AM [facility] AST 12 5 - 34 U/L 07/03/2023 12:39 AM [facility] Anion Gap 10 6 - 16 07/03/2023 12:39 AM [facility] BUN/Creatinine Ratio 12 7 - 23 07/03/2023 12:39 AM [facility] Osmolality Calculated 282 275 - 295 mOsm/kg 07/03/2023 12:39 AM [facility] Albumin/Globulin Ratio 1.0(L) 1.1 - 2.3 07/03/2023 12:39 AM [facility] eGFR by CKD-EPI >90 >=90 mL/min/1.7 3 m2 07/03/2023 12:39 AM [facility] Blood BLOOD SPECIMEN / Unknown Venipuncture / Unknown 07/02/2023 11:49 PM [facility] 07/03/2023 12:00 AM [facility] Keith Neumann PA-C LAB - CHEM ISTRY ORDERABLES [facility] [address] [place] [phone], [facility] [phone] * HCG BETA BLOOD QUANTITATIVE (07/02/2023 11:49 PM [facility]) Beta-hCG Total Quantitative <3 mIU/mL 07/03/2023 12:51 AM [facility] Comment: HCG Numeric Result Interpretation: Non- Females: < 5 mIU/mL Post-Menopausal Females: < 7 mIU/mL This assay is cleared for use in the early detection of only. It is not approved for any other uses such as tumor marker screening, tumor marker monitoring, etc. and should not be used for any other purposes. Blood BLOOD SPECIMEN / Unknown Venipuncture / Unknown 07/02/2023 11:49 PM TRANSMISSION SUPERINTENDENT 07/03/2023 12:00 AM TRANSMISSION SUPERINTENDENT Keith Neumann PA-C LAB - CHEM ISTRY ORDERABLES Performing Organization Address City/[facility]/ZIP Co de Phone Number [address] [phone], [facility] [phone] * LIPASE BLOOD (07/02/2023 11:49 PM TRANSMISSION SUPERINTENDENT) [facility] Lipase 19 8 - 78 U/L 07/03/2023 12:39 AM TRANSMISSION SUPERINTENDENT [facility] Blood BLOOD SPECIMEN / Unknown Venipuncture / Unknown 07/02/2023 11:49 PM TRANSMISSION SUPERINTENDENT 07/03/2023 12:00 AM TRANSMISSION SUPERINTENDENT Narrative [facility] - 07/03/2023 12:39 AM TRANSMISSION SUPERINTENDENT Lipase results from the DisplayLink Alinity analyzer may not be comparable with other methodologies. Keith Neumann PA-C LAB - CHEM ISTRY ORDERABLES Performing Organization Address [facility] [[email or web address]] Co de Phone Number [address] [phone], [facility] [phone] * CARDIAC EKG ORDER (06/15/2019 10:37 PM CDT) Narrative 06/15/2019 10:37 PM CDT Ordered by an unspecified provider. Scanned Document CARDIAC SERVICES ORD ERABLES * EKG 15-LEAD (06/03/2019 1:46 PM CDT) Ventricular Rate 54 BPM CG MUSE Atrial Rate 54 BPM CG MUSE P-R Interval 168 ms CG MUSE QRS Duration ms 80 ms CG MUSE Q-T Interval ms 422 ms CG MUSE QTC Calculation (Bezet) 400 ms CG MUSE Calculated P [place] 22 degrees CG MUSE Calculated R [place] 58 degrees CG MUSE Calculated T [place] 28 degrees CG MUSE Interpretation EKG * Pediatric ECG Analysis * Sinus bradycardia No previous ECGs available Confirmed by MAE FIGUEROA ([id number]) on 06/08/2019 9:15:44 AM CG MUSE 06/03/2019 1:46 PM CDT 06/08/2019 9:15 AM CDT Dakota Siddiqi MD ECG ORDERABLES CG MUSE * BASIC METABOLIC PANEL (CALCIUM TOTAL) (06/03/2019 1:41 PM CDT) Glucose 83 70 - 105 mg/dL 06/03/2019 2:13 PM [facility] Sodium 137 136 - 145 mmol/L 06/03/2019 2:13 PM [facility] Potassium 4.2 3.5 - 5.1 mmol/L 06/03/2019 2:13 PM [facility] Chloride 107 98 - 107 mmol/L 06/03/2019 2:13 PM [facility] CO2 22 20 - 28 mmol/L 06/03/2019 2:13 PM [facility] Calcium 8.98 8.92 - 10.32 mg/dL 06/03/2019 2:13 PM [facility] Anion Gap 8 5 - 20 mmol/L 06/03/2019 2:13 PM [facility] BUN 7.8 6.1 - 21.0 mg/dL 06/03/2019 2:13 PM [facility] Creatinine 0.74 0.62 - 1.00 mg/dL 06/03/2019 2:13 PM [facility] eGFR by MDRD 06/03/2019 2:13 PM [facility] Comment: eGFR calculations are not performed for children under 18 years old. eGFR by MDRD 06/03/2019 2:13 PM [facility] Comment: eGFR calculations are not performed for children under 18 years old. Blood BLOOD SPECIMEN / Unknown Venipuncture / Unknown 06/03/2019 1:41 PM CDT 06/03/2019 1:44 PM CDT Dakota Siddiqi MD LAB - CHEMISTRY [place] Organization Address City/State/ZIP Co de Phone Number [facility] [address] [place] [address] Care Teams Lead Recoverer Relationship Specialty Start Date End Date Max Vogt MD [address] [place] [address] PCP - General Family Medicine 12/30/18
--- OUTSIDE RECORDS SUMMARY | 2024-10-03 15:30 | XMS_ITS ---
Author Organization BILLING FAC[facility] Address [address] [place] [address] Care Team Providers Care Personal Security Specialist Name Role Phone Lizet Lakhani Primary Care [...] Flu B NEGATIVE Lot # Expiration Date Payroll And Benefits Coordinator AMARILIS MALDONADO COVID [facility] Professional Use SARS Antigen Reviewed date:10/31/2023 01:32:36 PM Interpretation:Normal Performing Lab: Notes/Report: Normal [facility] NEGATIVE REASON FOR VISIT S/S URI, sinus infection, sore throat, afebrile, Patient states left ear was bleeding through the night, body aches, sore throat with a lump in it. States left ear is muffled with sounds. Diarrhea (per patient, went 3 times today and was not formedX1, then normal ), minimal non-prodcutive cough. MEDICATIONS Medication SIG (Take, Route, Fr equency, Duration) Notes Start Date End Date Status valACYclovir HCl 1 GM 1 tablet Orally TW ICE DAILY X2 DAYS FOR COLD SORE 10/31/2023 Active VITAL SIGNS Temperature 98.5 degrees Fahrenheit 10/31/19 24 Heart Rate 101 /min 10/31/2023 Oximetry 97 % 10/31/2023 Blood pressure systolic 120 mm Hg 10/31/19 24 Blood pressure diastolic 72 mm Hg 024 Respiratory Rate 14 /min 10/31/2023 Weight 174 lbs 10/31/2023 Height 67.5 in 10/31/2023 BMI 26.85 10/31/2023 Weight-kg 78.93 kg 10/31/2023 BMI Percentile 87.29 % 10/31/2023 Encounters Encounter Location Date Provider Diagnosis [facility] [address] [place] [address] 10/31/2023 Lizet Lakhani URI, acute J06.9 ; Occupational exposure to COVID-19 virus Z20.822 ; Cold sore B00.1 and Ceruminosis, bilateral H61.23 ASSESSMENTS Encounter Date Diagnosis Assessment Notes Treatment [...] settings and known illness such as COVID. 10/31/2023 Cold sore (ICD-10 - B00.1) Pt [...] including Qtips. 10/31/2023 Other PLAN OF TREATMENT Next Appt Details Follow Up: 2 - 3 Days prn, R alton: URI Procedure Notes * Category Sub-Category Detail Notes Cerumen removal Procedure curette used to remove cerumen, irrigated with water/H2O2 Post-procedure patient tolerated pr ocedure well, successful bilaterally Progress Notes * Jenn HERNANDESDOB: [birth year] (18 yo F)Acc No.[id number]:10/31/2023 Patient: Jenn HERNANDES Provider: Lizet Lakhani APRN :2005 Age:18 Y Sex:Female Date:10/31/2023 Phone: Address:[address] [place] [address] Subjective: * Chief Complaints: * S/S URI, sinus infection, sore throat, afebrilePatient states left ear was bleeding through the night, body aches, sore throat with a lump in it. States left ear is muffled with sounds. Diarrhea (per patient, went 3 times today and was not formedX1, then normal ), minimal non-prodcutive cough. * HPI: *: Pt presents for c/o feeling sick x 2 days. t x: ibuprofen (last yesterday) [facility] at shelter, 11 residents tested + COVID this week. * ROS: General/Constitutional: General REPORTS: FATIGUE, HEADACHE. Denies: fever, chills. Eyes Denies:, blurred vision. ENT REPORTS: SORE THROAT, CONGESTION, RUNNY NOSE, LT EAR PAIN AND MUFFLED HEARING. Cardiovascular DENIES: , chest pain or tightness, irregular heartbeat, palpitations. Respiratory DENIES: shortness of breath, wheezing, cough. Gastrointestinal REPORTS: DIARRHEA FEW TIMES, REDUCED APPETITE. DENIES: , abdominal pain, nausea , vomiting. Skin DENIES: , rash. Musculoskeletal REPORTS: MYALGIAS.. Neurologic DENIES: , dizziness, weakness. * Medical History: * Surgical History: * Hospitalization/Major Diagno stic Procedure: * Medications: TakingvalACYclovir HCl 1 GM Tablet 1 tablet Orally TWICE DAILY X2 DAYS FOR COLD SORE Medication List reviewed and reconciled with the patientTaking valACYclovir HCl 1 GM Tablet 1 tablet Orally TWICE DAILY X2 DAYS FOR COLD SORE Medication List reviewed and reconciled with the patient * Allergies: Sulfa Antibioticsno[Allergies Verified] Objective: * Vitals: Temp:98.5F, HR:101, Oxygen sat:97%, BP:120/72mm Hg, RR:14/min, Wt:174lbs, Wt %: 93.31 %, Ht:67.5in, BMI:26.85, Wt-k.93 kg, BMI %: 87.29 %, Ht %: 89.7 %. * Examination: General Examination *: GENERAL APPEARANCE: TIRED, ILL, alert and oriented, no acute distress, pleasant, well nourished. HEAD: atraumatic, normocephalic. EYES: pupils equal/round/reactive to light , conjunctiva clear , sclera non-icteric. EARS: INITIAL EXAM - UNABLE TO VISUALIZE TM BILATERALLY. POST IRRIGATION - a uditory canal clear, l ight reflex present, t ympanic membrane intact b ilaterally. SINUSES: non-tender. NOSE: nares patent, no lesions . ORAL CAVITY: TENDER CRUSTED SORES TO UPPER LATERAL LIPS, mucosa moist, normal dentition. THROAT: MILD ERYTHEMA, no exudate, pharynx normal, tonsils normal, uvula midline . NECK/THYROID: neck supple. LYMPH NODES: RT SUBMANDIBULAR L AD, TTP, APPROX 1 CM SOFT, MOBILE. HEART: S1/S2 normal, regular rate and rhythm, no murmurs, no rubs, no gallops. LUNGS: clear to auscultation, good air movement, no respiratory distress, no cough, no wheeze. ABDOMEN: soft, non-tender, normal bowel sounds, non-distended. SKIN: Warm and dry, good turgor, no rashes, no suspicious lesions. NEUROLOGIC: alert, cooperative, moving all extremities spontaneously. PSYCH: affect normal , cognitive function intact , mood normal. Assessment: * Assessment: 1. URI, acute - J06.9 (Primary) 2. Occupational exposure to COVID-19 virus - Z20.822 3. Cold sore - B00.1 4. Ceruminosis, bilateral - H61.23 Plan: * Treatment: Value Reference Range RAPID INFLUENZA POSITIVE * Flu A NEGATIVE * Flu B NEGATIVE * Payroll And Benefits Coordinator AMARILIS MALDONADO Clinical Notes: Rapid testing results: negative COVID and flu. Discusssed OTC medications/analgesics as appropriate for pain and ssx mgnt. Advised hydration, rest, hand hygiene, sanitize surfaces. Notify us if condition worsens. RTC 2-3 days if no improvement with antibiotics. Work note provided.?2.??Occupational exposure to COVID-19 virus?LAB: COVID QuickVue Professional Use SARS Antigen (Collection Date & Time - 10/31/2023)??Normal* Value Reference Range Quickvue NEGATIVE Clinical Notes: Reviewed infection precautions to utilize when in pt care settings and known illness such as COVID.?3.??Cold sore?? Clinical Notes: Pt taking valacyclovir from prior provider for cold sore outbreak. She reportedly has outbreak when ill. Condition is responding to antiviral well. She will notify us for further concern.?4.??Ceruminosis, bilateral?? Clinical Notes: After verbal or written consent was obtained. A 50/50 solution of warm water and hydrogen peroxide was used to flush specified bilatera ears. A large amount of cerumen was removed. Patient tolerated procedure well and noted improvement in hearing and sensation of clogged ear. Prevention of Cerumen Impaction discussed. Educated to avoid inserting foreign objects into ears includingQtips.? * Procedures: Cerumen removal: Procedure curette used to remove cerumen, irrigated with water/H2O2. Post-procedure patient tolerated procedure well, successful bilaterally. * Procedure Codes: 97633 SARS-COV-2 COVID-19 AMP PRB, Modifiers: QW 92197 INFLUENZA ASSAY [id number] Removal impacted cerumen requiring instrumentation, unilateral * Follow Up: 2 - 3 Days prn (Reason: URI) * Billing Information: * Visit Code: 59717 Level 3 Est Patient Acute Care. Modifiers: 25 * Procedure Codes: 90145 SARS-COV-2 COVID-19 AMP PRB. Modifiers: QW 64570 INFLUENZA ASSAY W/OPTIC. 77925 Removal impacted cerumen requiring instrumentation, unilateral. * Sign off status: Completed true * Provider: Lizet Lakhani APRN Date: 10/31/2023 History and Physical Notes * Examination Category Sub-Category Detail Notes Category Not es General Examination * GENERAL APPEARANCE: TIRED, ILL, alert and oriented, no acute distress, pleasant, well nourished HEAD: atraumatic, normocep halic EYES: pupils equal/round/r eactive to light , conjunctiva clear , sclera non-icteric EARS: INITIAL EXAM - UNABL E TO VISUALIZE TM BILATERALLY. POST IRRIGATION - auditory canal clear, light reflex present, tympanic membrane intact bilaterally NOSE: nares patent, no les ions ORAL CAVITY: TENDER CRUSTED SORES TO UPPER LATERAL LIPS, mucosa moist, normal dentition THROAT: MILD ERYTHEMA, no ex udate, pharynx normal, tonsils normal, uvula midline NECK/THYROID: neck supple LYMPH NODES: RT SUBMANDIBULAR LAD , TTP, APPROX 1 CM SOFT, MOBILE SKIN: Warm and dry, good t urgor, no rashes, no suspicious lesions HEART: S1/S2 normal, regula r rate and rhythm, no murmurs, no rubs, no gallops LUNGS: clear to auscultatio n, good air movement, no respiratory distress, no cough, no wheeze ABDOMEN: soft, non-tender, no rmal bowel sounds, non-distended NEUROLOGIC: alert, cooperative, moving all extremities spontaneously PSYCH: affect normal , cogn itive function intact , mood normal SINUSES: non-tender
--- OUTSIDE RECORDS SUMMARY | 2024-10-03 15:30 | XMS_ITS ---
Author Organization [facility] Address [address] [place] [address] Care Team Providers Care Tape Maker Name Role Phone Christine Rodriguez Unavailable [phone] Allergies No Known Allergies Reason For Referral Reason therapy Diagnosis 1 Mood disorder (F39) Diagnosis 2 Anxiety (F41.9) Referral Organization [facility] Referring Provider First Name Christine Referring Provider Last Name Jennifer Referring Provider Speciality Psychiatry Referred Provider Specialty Psychiatry [facility] Notes VelardeParker 1 10:05:55 AM > Not able to get ahold of patient. Left vm and will try again later, Syd Parker 06/17/2023 01:01:48 PM > Spoke with patient and gave her central access information to get set up Referral Priority Routine REASON FOR VISIT NEW EVAL-zoom Medications Medication SIG (Take, Route, Fr equency, Duration) Notes Start Date End Date Status hydrOXYzine HCl 10 MG 1 tablet as needed Orally twice a day as needed for 30 days 06/13/2023 Active Abilify 2 MG 1 tablet Orally Once a day for 30 days 06/13/2023 Active Social History Tobacco Use: Social History Observation Description Date Details (start date - stop date) Unknown Dont use, Tobacco Use/Smoking Question Answer Notes Are you a Uses tobacco in other forms Additional Findings: Tobacco User e-Cigarette Problems Problem Type SNOMED Code ICD Code Onset Dates Problem Status W/U Status Risk Notes Problem Anxiety (83483142) Anxiety (F41.9) Active confirmed Problem Mood disorder (49568948) Mood disorder (F39) Active confirmed Encounters Encounter Location Date Provider Diagnosis [address] [place] [place] [address] 06/13/2023 Christine Jennifer Anxiety F41.9 and Mood disorder F39 Assessments Encounter Date Diagnosis (ICD Code) Assessment Notes Treatment Notes Treatment Clinical Notes Section Notes 06/13/2023 Anxiety (ICD-10 - F41.9) Will start pt on Hydroxyzine BID PRN to aid anxiety; will consider adding Buspar BID to aid anxiety if symptoms do not improve. Therapy referral placed. Routine labs ordered. 06/13/2023 Mood disorder (ICD-10 - F39) Will start pt on Abilify for labile moods, manic/depression episodes; routine labs ordered. Will continue to monitor concentration issues and consider starting Strattera if needed. Pt reports ADHD as a child. DD: Bipolar 2 disorder, Schizophrenia, BPD; will continue to monitor symptoms. Informed pt to collect family history to see if mental health disorders especially Bipolar Disorder runs in the family. Will consider adding Lamictal or low dose SSRI at next visit if symptoms do not improve. Pt denies SI/HI at this time. 06/13/2023 Other Discussed sleep hygiene and caffeine intake Discussed medication efficacy and purpose Also discussed medication interactions, risks, benefits and side effects. No additional questions concerning medications at this time. Discussed treatment plan Return to clinic 4 weeks Routine labs ordered Encouraged counseling; referral placed. Discussed treatment plan; patient is agreeable and accepting of treatment plan. Patient denies further questions or concerns at this time. Reasons, potential benefits, interactions and side effects of all medications were discussed. The Patient/Guardian asked appropriate questions, appeared to understand the answers, and decided to accept the treatment and continue being followed. The Patient/Guardian is aware of the need to contact the office or return for an earlier appointment if any problems or concerns arise. May also contact the 24-hour crisis hotline (R), refer to the closest emergency room or call 911 if new symptoms arise of existing symptoms worsen; the Patient/Guardian is aware that this would apply to symptoms such as: suicidal ideation, homicidal ideation, high risk behaviors, manic symptoms, psychotic symptoms, physical symptoms, or any other symptoms that may be dangerous to self or others. Greater than 50% of time spent on coordination and counseling where psychopharmacology as well as psychotherapeutic interventions were discussed along with review of treatments in the past. Plan Of Treatment Medication Medication Name Sig Start Date Stop Date Notes hydrOXYzine HCl 10 MG 1 tablet as needed Orally twice a day as needed for 30 days 06/13/2023 Abilify 2 MG 1 tablet Orally Once a day for 30 days 06/13/2023 Treatment Notes Assessment Notes Anxiety Will start pt on Hyd roxyzine BID PRN to aid anxiety; will consider adding Buspar BID to aid anxiety if symptoms do not improve. Therapy referral placed. Routine labs ordered. Mood disorder Will start pt on Divina lify for labile moods, manic/depression episodes; routine labs ordered. Will continue to monitor concentration issues and consider starting Strattera if needed. Pt reports ADHD as a child. DD: Bipolar 2 disorder, Schizophrenia, BPD; will continue to monitor symptoms. Informed pt to collect family history to see if mental health disorders especially Bipolar Disorder runs in the family. Will consider adding Lamictal or low dose SSRI at next visit if symptoms do not improve. Pt denies SI/HI at this time. Other Discussed sleep hygiene and caffeine intake Discussed medication efficacy and purpose Also discussed medication interactions, risks, benefits and side effects. No additional questions concerning medications at this time. Discussed treatment plan Return to clinic 4 weeks Routine labs ordered Encouraged counseling; referral placed. Discussed treatment plan; patient is agreeable and accepting of treatment plan. Patient denies further questions or concerns at this time. Reasons, potential benefits, interactions and side effects of all medications were discussed. The Patient/Guardian asked appropriate questions, appeared to understand the answers, and decided to accept the treatment and continue being followed. The Patient/Guardian is aware of the need to contact the office or return for an earlier appointment if any problems or concerns arise. May also contact the 24-hour crisis hotline ([facility]), refer to the closest emergency room or call 911 if new symptoms arise of existing symptoms worsen; the Patient/Guardian is aware that this would apply to symptoms such as: suicidal ideation, homicidal ideation, high risk behaviors, manic symptoms, psychotic symptoms, physical symptoms, or any other symptoms that may be dangerous to self or others. Greater than 50% of time spent on coordination and counseling where psychopharmacology as well as psychotherapeutic interventions were discussed along with review of treatments in the past. 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: * Chief Complaints: * N EW EVAL-zoom * HPI: D epression Screening: PHQ-9 L ittle interest or pleasure in doing things N early every day, F eeling down, depressed, or hopeless N early every day, T rouble falling or staying asleep, or sleeping too much N early every day, F eeling tired or having little energy N early every day, P oor appetite or overeating N early every day, F eeling bad about yourself or that you are a failure, or have let yourself or your family down N early every day, T rouble concentrating on things, such as reading the newspaper or watching television?Nearly every day, M oving or speaking so slowly that other people could have noticed; or the opposite, being so fidgety or restless that you have been moving around a lot more than usual N early every day, T houghts that you would be better off or of hurting yourself in some way S everal days (Consider Suicide Assessment Risk), T otal Score 2 5, I nterpretation S evere Depression. I ntervention D epression Screening Findings P ositive, F ollow-Up for Depression N o Referral necessary, patient involved in behavioral health treatment .. This session was completed telephonically due to COVID-19 emergency, with client/parental/guardian consent. S creening: [place] Suicide Severity Rating Scale (LF) D o you want to initiate with S creener form, 1 . Wish to be : Have you wished you were or wished you could go to sleep and not wake up? Y es, 2 . Suicidal Thoughts: Have you actually had any thoughts of killing yourself? N o, 6 . Suicide Behaviour: Have you ever done anything,started to do anything, or prepared to end your life? N o, I nterpretation: L ow Risk. C SSRS Interpretation and Follow Up Plan: CSSRS Interpretation and Follow Up Plan CSSRS Interpretation and Follow Up Plan. CSSRS Interpretation and Follow Up Plan C SSRS Screen documented using SF Y es, M oderate or High risk requires selection of a follow up plan C SSRS No/Low: intervention not needed at this time. G AD-7 Screenin. Feeling nervous, anxious, or on edge : , Nearly every day-3. 2 . Not being able to stop or control worrying : , Nearly every day-3. 3 . Worrying too much about different things : , Nearly every day-3. 4 . Trouble sleeping/relaxing : , Nearly every day-3. 5 . Being so restless that it is hard to sit still : , Nearly every day-3. 6 . Becoming easily annoyed or irritable : , Nearly every day-3. 7 . Feeling afraid, as if something awful might happen : , Nearly every day-3. G AD-7 Score T otal score?21 :. M ood Disorder Questionnaire 02-07-22: Please answer each question to the best of your ability. Questions P lease answer each question to the best of your ability. H as there ever been a time period when you were not your usual self and..., Y ou felt so good or hyper that other people thought you were not your normal self or you were so hyper that you got into trouble? Y es ., Y ou were so irritable that you shouted at people or started fights or arguments? Y es ., Y ou got much less sleep than usual and found that you didn't really miss it? Y es ., Y ou felt much more self-confident than usual? Y es ., Y ou were more talkative or spoke much faster than usual? Y es ., T houghts raced through your head or you couldn't slow your mind down? Y es ., Y ou were so easily distracted by things around you that you had trouble concentrating or staying on track? Y es ., Y ou had more energy than usual? Y es ., Y ou were more active or did many more things than usual? Y es ., You were more social or outgoing than usual, for example, you telephoned friends in the middle of the night? Y es ., Y ou were more interested in sex than usual? ., Y ou did things that were usual for you or that other people might have thought were excessive, foolish, or risky? Y es ., S pending money got you or your family in trouble? Y es ., I f you checked YES to more than one of the above, have several of these ever happened during the same period of time? Y es ., H ow much of a problem did any of these cause you - like being unable to work; having family, money or legal troubles; getting into arguments or fights? S erious problem ..? A dult ADHD Self-Report Scale: Symptom Checklist H ave trouble wrapping up final details of project? S ometimes, D ifficulty getting things in order? S ometimes, P roblems remembering appointments? V ilan Often, D o you avoid or delay getting tasks started? V ilan Often, F idget or squirm? V ilan Often, F eel over active or compelled or driven to do things? V ilan Often, H ow often make careless mistakes? O ften, D ifficulty keeping attention when bored? V ilan Often, D ifficulty concentrating on what people say? O ften, Misplace things or difficulty finding things at home or work? V ilan Often, H ow often distracted by noise? V ilan Often, H ow often leave seat when expected to remain seated? V ilan Often, H ow often feel restless or fidgety? V ilan Often, H ave difficulty unwinding or relaxing? V ilan Often, H ow often find self talking too much in social situation? R iav, F ind self finishing sentences of others? V ilan Often, H ow often do you have difficulty waiting your turn in situations when turn taking is required? V ilan Often, H ow often do you interupt others when they are busy? V ilan Often. . C onstitutional: Expectations of this visit- W hy present now? S ymptoms Present- 17-year-old female presents to clinic via zoom for initial psychiatric evaluation. P atient reports So I have been around my friends and family a lot; I have know that I needed help a lot but it is tarting to mess with my family and friends and I think it is time that I get help. So I am experiencing these weirds highs and lows; some days I feel really good and confident and spend money recklessly and then the next day I will get really depressed and low and decent myself from everyone; it is the weirdest things; it is highs and lows; I will have highs for days and then lows for days. One week I will eat really heavily and then another week I will rarely eat. I was diagnosed with ADHD as a kid but I don't take meds for it; I think that needs to be addressed too because I cant sit still, I cut people off all the time when they are talking and I also worry constantly and the worst is always in my head and I also struggle when my mom is not around; I get so worried that I make myself sick P HQ-9 score is 25 today I NITIAL MHA: Today I nformation provided by?- Patient T becky- There are probably triggers out there but they are just random W hat helps/Coping mechanisms? sleeping; I tend to sleep a lot; with my sleeping, I have to take Melatonin ad by the time I wake up I am tired all day. My vape is really my only coping mechanism G oals- I really want to get my career path going; I want to be a nurse; I work as TRANSPORTATION EQUIPMENT PAINTER now but I haven't been working for the past few months; I working overtime and working a lot but for the past year I don't have any desire to work. I have no motivation at times to do anything and then at times I have a lot of highs S leep- Reports that she either sleeps for 3 hours or for 16 hours; reports that she takes Melatonin A ppetite- bad; when I am in these highs, I barely eat but then when I am in a low, I eat a lot D epression-- 8-9 out of 10 H opeless/helpless- Yes G uilty/Worthless all the time I nterest level- very low; back to the highs and lows; when I am in a low, I have no interest in anything C oncentration- very poor; I cant concentrate for nothing; I can try to listen but if there is any ticking around me, my mind is going to focus on that. I tend to cut people off because I cant even focus on them C rying spells yes E nergy Level- it all depends on the highs and lows; right now I am in a high and I can go, go, go W eight loss/Weight gain Reports that her weight fluctuates A nxiety- 10 out of 10 P anic Attacks all the time; that is what the cheek biting is, I then feel hot and my heart starts racing S ocial Phobias yes; I really don't like talking to people n ightmares/Flashbacks here and there A nger/irritability- I do get angry and irritable very easily and I can get mean and I don't want to make people upset by the way I am being R acing thoughts- yes I can never focus on one thing D istractible- yes I ndiscretion/Inhibition- Yes I make them in the time and then think I shouldn't have done that; money is a big one R isk taking- Denies G randiosity- yes it goes along with the highs I ncreased activity- Yes M issed sleep and still felt good- Yes T alkativeness- Yes I mpulsivity- yes all the time S uicidal Ideation- Denies S uicidal attempts- Denies S elf-Harm-- years ago but not now; I would say 2-3 years ago was the last time H omicidal Ideation- Denies H allucinations- yes whenever I am barely sleeping, I am hearing and seeing things; I just feel like I am high. It is like I hear people talk to me P aranoia- yes I am paranoid all the time D elusions- Denies O CD-- I don't think so A nimal cruelty or fire setting Denies P AST PSYCHIATRIC HISTORY-- P ast Diagnosis--- ADHD as a child A DHD/learning disabilities as child: ADHD as a child; was not medicated P sychiatric Medications- C urrent substance use - Past: None C urrent: None D enies substance use M edication Adherence- N/A M edication efficacy- N/A S javed effects- N/A P ast Psychiatric Hospitalizations/Counseling Denies M EDICAL HISTORY-- A llergies- NKDA O ther Medications- None M edical Concerns- None L MP-- IUD but reports that she is getting it removed today at 1:30PM due to pain and cramping T herapist- None P [facility] Physician- Dr Br[facility] in [facility] moking history--- Reports vaping daily since age 12 D rug/alcohol use Substance A lcohol Last use: 5 days ago M arijuana Last use: months ago c ocaine Last use: never H eroin Last use: never M eth Last use: never L SD/PCP Last use: never I V drugs Last use: none O TC/Rx drugs None B irth location- [place], [place] C urrent home location- [place], [place] W ho lives at home? Mother, father and 2 sisters S iblings? Children? Siblings: 2 brothers and 4 sisters; children: none R elationships? 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 * ROS: P sychiatric: Admits a nger. A dmits m ood swings. T houghts of self harm D enies. D enies H omicidal thoughts. H yperactivity A dmits. I nattention A dmits. B ehavior concerns D enies. D isruptive behavior Denies. Obsessive behavior D enies. C ompulsive behavior Denies. P aranoia A dmits. D ifficulty concentrating A dmits. s leeping more than usual Denies. A dmits A nxiety. A dmits A uditory/visual hallucinations. D enies D elusions. A dmits D epressed mood. A dmits D ifficulty sleeping. D enies E ating disorder.?Denies L oss of appetite. D enies S tressors. D enies S ubstance abuse. D enies S uicidal thoughts. * Medical History: * Surgical History: D enies Past Surgical History * Hospitalization/Major Diagno stic Procedure: D enies Past Hospitalization * Family History: F ather: alive. M other: alive. 2 brother(s) , 4 sister(s) - healthy. . someone has a mental health issue but my Dad wont tell me who or what it is . * Social History: P rimary Social History: L iving Arrangement L iving Arrangement: D ependent Living, L iving with: Dejah juarez(s), I s this a supportive environment? Y es. A lcohol Use A lcohol Use Frequency: M onthly or less. I llicit Substance Usage I llicit Substance Usage: N o. 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 T obacco Use: T obacco Use/Smoking A re you a U ses tobacco in other forms, A dditional Findings: Tobacco User e -Cigarette. * Medications: N one * Allergies: N .K.D.A.no[Allergies Verified] Objective: * Vitals: I nitials: nhan, LMP: IUD, Pain scale:0 Denies any physical symptoms; unable to obtain vital signs due to telephone encounter. * Examination: G eneral Examination: PSYCH: s peech clear, no auditory or visual hallucinations, thought content without suicidal ideation or delusions, alert, oriented x4, cognitive function intact, cooperative with exam, judgement and insight good, thought process logical, goal directed, rapid, pressured speech, interrupts at times during examination, d enies any current thoughts/plans of suidicial/homicidal ideation. Assessment: * Assessment: 1. A nxiety - F41.9 2 . M ood disorder - F39 Plan: * Treatment: 2. M ood disorder Start Abilify Tablet, 2 MG, 1 tablet, Orally, Once a day, 30 days, 30, Refills 0. L AB: CBC With Differential/Platelet* (Ordered for 06/13/2023) L AB: CMP13 (Ordered for 06/13/2023) L AB: Vitamin B12* (Ordered for 06/13/2023) L AB: Vitamin D, 25-Hydroxy* (Ordered for 06/13/2023) L AB: TSH+Free T4* (Ordered for 06/13/2023) L AB: Folate (Folic Acid), Serum* (Ordered for 06/13/2023) L AB: Lipid Panel* (Ordered for 06/13/2023) L AB: Hemoglobin A1c* (Ordered for 06/13/2023) L AB: test, urine (Ordered for 06/13/2023) L AB: Comprehensive Drug Analysis, Urine (Ordered for 06/13/2023) Notes: Will start pt on Abilify for labile moods, manic/depression episodes; routine labs ordered. Will continue to monitor concentration issues and consider starting Strattera if needed. Pt reports ADHD as a child. DD: Bipolar 2 disorder, Schizophrenia, BPD; will continue to monitor symptoms. Informed pt to collect family history to see if mental health disorders especially Bipolar Disorder runs in the family. Will consider adding Lamictal or low dose SSRI at next visit if symptoms do not improve. Pt denies SI/HI at this time. Referral To:Psychiatry service Reason:therapy 3. O thers Notes:Discussedsleep hygiene and caffeine intakeDiscussedmedication efficacy and purpose Also discussed medication interactions, risks,benefits and side effects. No additional questions concerning medications atthis time.Discussedtreatment planReturn toclinic 4 weeksRoutine labsorderedEncouragedcounseling; referral placed.Discussedtreatment plan; patient is agreeable and accepting of treatment plan. Patientdenies further questions or concerns at this time.Reasons, potential benefits,interactions and side effects of all medications were discussed.The Patient/Guardian askedappropriate questions, appeared to understand the answers, and decided toaccept the treatment and continue being followed.The Patient/Guardian is aware of theneed to contact the office or return for an earlier appointment if any problemsor concerns arise. May also contact the 24-hour crisis hotline ([facility]), refer tot closest emergency room or call 911 if new symptoms arise of existingsymptoms worsen; the Patient/Guardian is aware that this would apply tosymptoms such as: suicidal ideation, homicidal ideation, high risk behaviors,manic symptoms, psychotic symptoms, physical symptoms, or any other symptomsthat may be dangerous to self or others.Greater than 50% of time spent oncoordination and counseling where psychopharmacology as well aspsychotherapeutic interventions were discussed along with review of treatmentsin the past. 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 Feeling down, depressed, or hopeless: Ne ella every day Trouble falling or staying asleep, or sl eeping too much: Nearly every day Feeling tired or having little energy: N early every day Poor appetite or overeating: Nearly ever y day Feeling bad about yourself o r that you are a failure, or have let yourself or your family down: Nearly every day Trouble concentrating on thi ngs, such as reading the newspaper or watching television: Nearly every day Moving or speaking so slowly that other people could have noticed; or the opposite, being so fidgety or restless that you have been moving around a lot more than usual: Nearly every day Thoughts that you would be b myron off or of hurting yourself in some way: Several days (Consider Suicide Assessment Risk) Total Score: 25 Interpretation: Severe Depression Intervention Depression Screening Findings: P ositive Follow-Up for Depression: No Referral necessary, patient involved in behavioral health treatment . Constitutional Expectations of this visit- Why present now? Symptoms Present- 17-year-old female presents to clinic via zoom for initial psychiatric evaluation. Patient reports So I have been around my friends and family a lot; I have know that I needed help a lot but it is tarting to mess with my family and friends and I think it is time that I get help. So I am experiencing these weirds highs and lows; some days I feel really good and confident and spend money recklessly and then the next day I will get really depressed and low and decent myself from everyone; it is the weirdest things; it is highs and lows; I will have highs for days and then lows for days. One week I will eat really heavily and then another week I will rarely eat. I was diagnosed with ADHD as a kid but I don't take meds for it; I think that needs to be addressed too because I cant sit still, I cut people off all the time when they are talking and I also worry constantly and the worst is always in my head and I also struggle when my mom is not around; I get so worried that I make myself sick PHQ-9 score is 25 today INITIAL MHA: Today Information provided by?- Patient Triggers- There are probably triggers out there but they are just random What helps/Coping mechanisms? sleeping; I tend to sleep a lot; with my sleeping, I have to take Melatonin ad by the time I wake up I am tired all day. My vape is really my only coping mechanism Goals- I really want to get my career path going; I want to be a nurse; I work as TRANSPORTATION EQUIPMENT PAINTER now but I haven't been working for the past few months; I working overtime and working a lot but for the past year I don't have any desire to work. I have no motivation at times to do anything and then at times I have a lot of highs Sleep- Reports that she either sleeps for 3 hours or for 16 hours; reports that she takes Melatonin Appetite- bad; when I am in these highs, I barely eat but then when I am in a low, I eat a lot Depression-- 8-9 out of 10 Hopeless/helpless- Yes Guilty/Worthless all the time Interest level- very low; back to the highs and lows; when I am in a low, I have no interest in anything Concentration- very poor; I cant concentrate for nothing; I can try to listen but if there is any ticking around me, my mind is going to focus on that. I tend to cut people off because I cant even focus on them Crying spells yes Energy Level- it all depends on the highs and lows; right now I am in a high and I can go, go, go Weight loss/Weight gain Reports that her weight fluctuates Anxiety- 10 out of 10 Panic Attacks all the time; that is what the cheek biting is, I then feel hot and my heart starts racing Social Phobias yes; I really don't like talking to people nightmares/Flashbacks here and there Anger/irritability- I do get angry and irritable very easily and I can get mean and I don't want to make people upset by the way I am being Racing thoughts- yes I can never focus on one thing Distractible- yes Indiscretion/Inhibition- Yes I make them in the time and then think I shouldn't have done that; money is a big one Risk taking- Denies Grandiosity- yes it goes along with the highs Increased activity- Yes Missed sleep and still felt good- Yes Talkativeness- Yes Impulsivity- yes all the time Suicidal Ideation- Denies Suicidal attempts- Denies Self-Harm-- years ago but not now; I would say 2-3 years ago was the last time Homicidal Ideation- Denies Hallucinations- yes whenever I am barely sleeping, I am hearing and seeing things; I just feel like I am high. It is like I hear people talk to me Paranoia- yes I am paranoid all the time Delusions- Denies OCD-- I don't think so Animal cruelty or fire setting Denies PAST PSYCHIATRIC HISTORY-- Past Diagnosis--- ADHD as a child ADHD/learning disabilities as child: ADHD as a child; was not medicated Psychiatric Medications- Current substance use - Past: None Current: None Denies substance use Medication Adherence- N/A Medication efficacy- N/A Side effects- N/A Past Psychiatric Hospitalizations/Counseling Denies MEDICAL HISTORY-- Allergies- NKDA Other Medications- None Medical Concerns- None LMP-- IUD but reports that she is getting it removed today at 1:30PM due to pain and cramping Therapist- None Primary Care Physician- Dr Briones in [place], [place] Smoking history--- Reports vaping daily since age 12 Drug/alcohol use Substance Alcohol Last use: 5 days ago Marijuana Last use: months ago cocaine Last use: never Heroin Last use: never Meth Last use: never LSD/PCP Last use: never IV drugs Last use: none OTC/Rx drugs None location- [place], [place] Current home location- [place], [place] Who lives at home? Mother, father and 2 sisters Siblings? Children? Siblings: 2 brothers and 4 sisters; children: none Relationships? 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 Feeling nervous, anxious, or on edge :, Nearly every day-3 2. Not being able to stop or control wor rying :, Nearly every day-3 3. Worrying too much about different thi ngs :, Nearly every day-3 4. Trouble sleeping/relaxing :, Nearly e very day-3 5. Being so restless that it is hard to sit still :, Nearly every day-3 6. Becoming easily annoyed or irritable :, Nearly every day-3 7. Feeling afraid, as if something awful might happen :, Nearly every day-3 ANGÉLICA-7 Score Total score: 21 : Adult ADHD Self-Report Scale Symptom Checklist H ave trouble wrapping up final details of project?: Sometimes . Difficulty getting things in order?: Tin etimes Problems remembering appointments?: Very Often Do you avoid or delay getting tasks star juanjo?: Very Often Fidget or squirm?: Very Often Feel over active or compelled or driven to do things?: Very Often How often make careless mistakes?: Often Difficulty keeping attention when bored? : Very Often Difficulty concentrating on what people say?: Often Misplace things or difficulty finding th ings at home or work?: Very Often How often distracted by noise?: Very Oft en How often leave seat when expected to re main seated?: Very Often How often feel restless or fidgety?: Elisha y Often Have difficulty unwinding or relaxing?: Very Often How often find self talking too much in social situation?: Rarely Find self finishing sentences of others? : Very Often How often do you have diffic ulty waiting your turn in situations when turn taking is required?: Very Often How often do you interupt others when th ey are busy?: Very Often Screening [place] Suicide Sev erity Rating Scale (LF) Do you want to initiate with: Screener form 1. Wish to be : Have you wished you were or wished you could go to sleep and not wake up?: Yes 2. Suicidal Thoughts: Have you actually had any thoughts of killing yourself?: No 6. Suicide Behavior Question: Have you ever done anything,started to do anything, or prepared to end your life?: No Interpretation:: Low Risk Mood Disorder Questionnaire 02-07-22 Questions Please answer each question to the best of your ability.: Has there ever been a time period when you were not your usual self and... You felt so good or hyper th at other people thought you were not your normal self or you were so hyper that you got into trouble?: Yes . You were so irritable that y ou shouted at people or started fights or arguments?: Yes . You got much less sleep than usual and found that you didn't really miss it?: Yes . You felt much more self-confident than u sual?: Yes . You were more talkative or spoke much fa ster than usual?: Yes . Thoughts raced through your head or you couldn't slow your mind down?: Yes . You were so easily distracte d by things around you that you had trouble concentrating or staying on track?: Yes . You had more energy than usual?: Yes . You were more active or did many more th ings than usual?: Yes . You were more social or outg oing than usual, for example, you telephoned friends in the middle of the night?: Yes . You were more interested in sex than usu al?: . You did things that were usu al for you or that other people might have thought were excessive, foolish, or risky?: Yes . Spending money got you or your family in trouble?: Yes . If you checked YES to more t reveles one of the above, have several of these ever happened during the same period of time?: Yes . How much of a problem did an y of these cause you - like being unable to work; having family, money or legal troubles; getting into arguments or fights?: Serious problem . Do Not Use CSSRS Interpretation and Follow Up Plan CSSRS Interpretation and Follow Up Plan CSSRS Screen documented using SF: Yes Moderate or High risk requir es selection of a follow up plan: CSSRS No/Low: intervention not needed at this time Examination Category Sub-Category Detail Notes Category Not es General Examination PSYCH: speech clear , no auditory or visual hallucinations, thought content without suicidal ideation or delusions, alert, oriented x4, cognitive function intact, cooperative with exam, judgement and insight good, thought process logical, goal directed, rapid, pressured speech, interrupts at times during examination, denies any current thoughts/plans of suidicial/homicidal ideation Consultation Request Notes Referral Date Referring Provider Referred Provider Not es 06/13/2023 Christine Rodriguez , therapy
--- OUTSIDE RECORDS SUMMARY | 2024-10-03 15:30 | XMS_ITS ---
Author Organization [employer] [facility] Address [address] [place] [address] Care Team Providers Care Tester Compressed Gases Name Role Phone Lizet Lakhani Primary Care Provider ALLERGIES Allergen (clinical drug ingredient) Drug/Non Drug Allergy documented on EMR Reaction Allergy Type Onset Date Status Substance with sulfonamide structure and antibacterial mechanism of action (substance) Sulfa Antibiotics Unknown Drug Allergy Active RESULTS Component Value Reference Range Notes Influenza Rapid Reviewed date:12/23/2023 12:31:43 PM Interpretation:Normal Performing Lab: Notes/Report: Normal RAPID INFLUENZA POSITIVE Flu A NEGATIVE Flu B NEGATIVE Lot # Expiration Date [employer] Se[employer] T[employer] AMARILIS MALDONADO COVID [facility] Professional Use SARS Antigen Reviewed date:12/23/2023 12:26:46 PM Interpretation:Normal Performing Lab: Notes/Report: Normal [facility] NEGATIVE REASON FOR VISIT S/S URI, N/V/D, exposure to flu, Patient states she has been ill with symptoms of the flu since 12/19/23. States fever was 99.9, States several staff members are out with the flu MEDICATIONS Medication SIG (Take, Route, Frequency, Duration) Notes Start Date End Date Status valACYclovir HCl 1 GM 1 tablet Orally TW ICE DAILY X2 DAYS FOR COLD SORE 10/31/2023 Not-Taking Ondansetron HCl 4 MG 1-2 tablet Orally t wice daily as needed for 2 days 12/23/2023 Activ e VITAL SIGNS Temperature 98.0 degrees Fahrenheit 12/23/19 24 Heart Rate 78 /min 12/23/2023 Oximetry 98 % 12/23/2023 Blood pressure systolic 116 mm Hg 12/23/19 24 Blood pressure diastolic 78 mm Hg 024 Respiratory Rate 14 /min 12/23/2023 Weight 178.2 lbs 12/23/2023 Height 67.5 in 12/23/2023 BMI 27.5 12/23/2023 Weight-kg 80.83 kg 12/23/2023 BMI Percentile 88.92 % 12/23/2023 Encounters Encounter Location Date Provider Diagnosis [facility] [address] [place] [address] 12/23/2023 Lizet Lakhani URI, acute J06.9 and Nausea and vomiting in adult R11.2 ASSESSMENTS Encounter Date Diagnosis Assessment Notes Treatment Notes Treatment Clinical Notes Section Notes 12/23/2023 URI, acute (ICD-10 - J06.9) Rapid [...] will RTC if ssx fail to resolve. PLAN OF TREATMENT Medication Medication Name Sig Start Date Stop Date Notes Ondansetron HCl 4 MG 1-2 tablet Orally t wice daily as needed for 2 days 12/23/2023 Progress Notes * Jenn HERNANDESDOB: [birth year] (18 yo F)Acc No.[id number]:12/23/2023 Patient: Belle HERNANDESsa Provider: Lizet Lakhani APRN :2005 Age:18 Y Sex:Female Date:12/23/2023 Phone: Address:[address] [place], [place] [id number] Subjective: * Chief Complaints: * S/S URI, N/V/D, exposure to fluPatient states she has been ill with symptoms of the flu since 12/19/23. States fever was 99.9States several staff members are out with the flu * HPI: *: Pt presents for c/o feeling sick x 5 days. g etting better, but not good yet t x: ibuprofen & tylenool (last yesterday) [facility] residents and staff +flu currently s till having a hard time keeping fluids down. * ROS: General/Constitutional: General REPORTS: FATIGUE, HEADACHE. Denies: fever, chills. Eyes Denies:, blurred vision. ENT DENIES:, ear(s) pain, glands swollen, post-nasal drip, sore throat. Cardiovascular DENIES: , chest pain or tightness, irregular heartbeat, palpitations. Respiratory DENIES: ? shortness of breath, wheezing, cough. Gastrointestinal REPORTS: STOMACH ACHE, DIARRHEA , VOMITING, NAUSEA, REDUCED APPETITE.. Skin DENIES: , rash. Musculoskeletal Denies: myalgias. Neurologic DENIES: , dizziness, weakness. * Medical History: * Surgical History: * Hospitalization/Major Diagno stic Procedure: * Medications: Not-TakingvalACYclovir HCl 1 GM Tablet 1 tablet Orally TWICE DAILY X2 DAYS FOR COLD SORE Medication List reviewed and reconciled with the patientNot-Taking valACYclovir HCl 1 GM Tablet 1 tablet Orally TWICE DAILY X2 DAYS FOR COLD SORE Medication List reviewed and reconciled with the patient * Allergies: Sulfa Antibioticsno[Allergies Verified] Objective: * Vitals: Temp:98.0F, HR:78, Oxygen sat:98%, BP:116/78mm Hg, RR:14/min, Wt:178.2lbs, Wt Ch.2 lbs, Wt Chg %: 2.41%, Wt %: 94.24 %, Ht:67.5in, BMI:27.5, Wt-k.83 kg, BMI %: 88.92 %, Ht %: 89.67 %. * Examination: General Examination *: GENERAL APPEARANCE: TIRED, ILL, alert and oriented, no acute distress, pleasant, well nourished. HEAD: atraumatic, normocephalic. EYES: conjunctiva clear , sclera non-icteric. NOSE: nares patent, no lesions . THROAT: no erythema, no exudate, pharynx normal, tonsils normal, uvula midline . HEART: S1/S2 normal, regular rate and rhythm, [...] 1. URI, acute - J06.9 (Primary) 2. 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 Start Ondansetron HCl Tablet, 4 MG, 1-2 tablet, Orally, twice daily as needed, 2 days, 10 Tablet, Refills 0.? Clinical Notes: Zofran Rx'd and dispensed - educated pt on medication's indication, PRN use, and potential SE constipation. Encouraged her to hydrate well, try eating very small simple bland snacks vs large flavorful meals. Work note provided. She will RTC if ssx fail to resolve.? * Procedure Codes: 51095 SARS-COV-2 COVID-19 AMP PRB, Modifiers: QW 78280 INFLUENZA ASSAY W/OPTIC * Billing Information: * Visit Code: * Procedure Codes: 70507 SARS-COV-2 COVID-19 AMP PRB. Modifiers: QW 02585 INFLUENZA ASSAY W/OPTIC. * Sign off status: Completed true * Provider: Lizet Lakhani APRN Date: 12/23/2023 History and Physical Notes * Examination Category Sub-Category Detail Notes Category Not es General Examination * GENERAL APPEARANCE: TIRED, ILL, alert and oriented, no acute distress, pleasant, well nourished HEAD: atraumatic, normocep halic EYES: conjunctiva clear , sclera non-icteric NOSE: nares patent, no les ions THROAT: no erythema, no exud ate, pharynx normal, tonsils normal, uvula midline SKIN: Warm and dry, good t urgor, [...]
[2024-10-03 15:32] VITALS: BP 125/73; PULSE 91; RESP 18; TEMP 37.1; O2SAT 100
[2024-10-03 15:55] LABS: EDCOVIDSCREEN Negative (Negative); EDINFLUASCREEN Negative (Negative); EDINFLUBSCREEN Negative (Negative)
== END 2024-10-03 16:06 | disposition home or self-care (01) ==
PROVIDERS: Emergency Provider Nurse Practitioner Family; PCP Family Medicine
DX: J00 Acute nasopharyngitis [common cold] (principal); Z20.822 Contact with and (suspected) exposure to COVID-19
CPT/HCPCS: 87426; 87804; 99213; G0463